=== PATIENT | female | born 1935 | race Caucasian/White ===

== ENCOUNTER → 2017-05-02 | Outpatient (CLI) | payer BC ==
[~2017-05-02] MED LIST: ASCAUNK PO; B-COTAB18 PO; CALCTAB13 PO; LEVO1TAB33 PO; METR0.754 EXT; METR500T PO; MINO1CAP25 PO; MULT-506 PO; MULTTAB58 PO; NSNN50; OMEP20CA59 PO; OMEP20CA9 PO; PRAM0.129 PO; PRAM0.256 PO; TRAM-10 PO; TRETINOIN 0.05% EXT; VITAMIN D3 PO; [UNRECOGNIZED DRUG - CODE] EXT; [UNRECOGNIZED DRUG - OTHER]
[2017-05-02 09:33] LABS: BASO % 0.8 %; BASO ABS # 0.04 K/uL (0-0.2); COMPLETE YES; EOS % 2.1 %; HEMATOCRIT 39.5 % (37-47); IG% 0.2 %; LYMPH % 19.6 %; LYMPH ABS # 1.01 K/uL (1.2-3.4); MEAN CELL VOLUME 85.9 fL (80-100); MEAN CORPUSCULAR HEMOGLOBIN 28.9 pg (25-34); MEAN CORPUSCULAR HGB CONC 33.7 g/dl (32-36); MEAN PLATELET VOLUME 9.4 fL (7.4-10.4); MONO % 11.8 %; NEUT % 65.5 %; PLATELET COUNT 271 K/uL (130-400); WHITE BLOOD COUNT 5.16 K/uL (4.8-10.8)
[2017-05-02 09:51] LABS: ALT/SGPT 26 U/L (12-78); AST/SGOT 21 U/L (15-37); BLOOD UREA NITROGEN 13 mg/dl (7-18); BUN/CREATININE RATIO 14.7 (10-20); CARBON DIOXIDE 25 mmol/L (21-32); CHLORIDE 99 mmol/L (98-107); CHOLESTEROL 210 mg/dl (0-200); CREATININE 0.86 mg/dl (0.60-1.20); GLUCOSE 96 mg/dl (70-99); POTASSIUM 4.2 mmol/L (3.5-5.1); SODIUM 134 mmol/L (136-145); TRIGLYCERIDES 53 mg/dl (0-150); VERY LOW DENSITY LIPOPROT CALC 11 mg/dl
[2017-05-02 09:54] LABS: CALCIUM 9.3 mg/dl (8.5-10.1)
[2017-05-02 10:01] LABS: ALB/GLOB RATIO 1.2 (0.9-2); ALKALINE PHOSPHATASE 67 U/L (45-117); CHOLESTEROL/HDL RATIO 2.7; HDL CHOLESTEROL 79 mg/dl; LDL CHOLESTEROL CALCULATED 120 mg/dl
== END | disposition home or self-care (01) ==
LOC: C.LAB1850 07:35
PROVIDERS: ATTEND Internal Medicine
DX: Z13.29 Encounter for screening for other suspected endocrine disorder (principal); M25.50 Pain in unspecified joint; E78.5 Hyperlipidemia, unspecified; D72.819 Decreased white blood cell count, unspecified; E55.9 Vitamin D deficiency, unspecified

== ENCOUNTER → 2017-06-12 | Outpatient (CLI) | payer BC ==
[~2017-06-12] MED LIST changes: -B-COTAB18 PO; -MULT-506 PO; -OMEP20CA9 PO; -PRAM0.256 PO; -TRAM-10 PO; -VITAMIN D3 PO
[2017-06-12 11:52] LABS: BLOOD UREA NITROGEN 11 mg/dl (7-18); BUN/CREATININE RATIO 14.1 (10-20); CALCIUM 8.9 mg/dl (8.5-10.1); CARBON DIOXIDE 29 mmol/L (21-32); CHLORIDE 98 mmol/L (98-107); CREATININE 0.78 mg/dl (0.60-1.20); GLUCOSE 92 mg/dl (70-99); POTASSIUM 4.7 mmol/L (3.5-5.1); SODIUM 132 mmol/L (136-145)
== END | disposition home or self-care (01) ==
LOC: C.LABSPEC 11:07
PROVIDERS: ATTEND Internal Medicine
DX: I87.2 Venous insufficiency (chronic) (peripheral) (principal)

== ENCOUNTER → 2017-08-08 | Outpatient (CLI) | payer BC ==
[2017-08-08 10:01] LABS: BLOOD UREA NITROGEN 11 mg/dl (7-18)
[2017-08-12 15:34] LABS: GAMMA GLOBULIN 0.9 G/DL (0.8-1.7); TOTAL PROTEIN 6.5 G/DL (6.2-8.3); VITAMIN B6** TC 926 159 ng/mL (2.1-21.7)
--- NOTE | 2017-08-16 09:45 | CODING QUERY MEDICAL NECESSITY ---
SUPPORTING DIAGNOSIS NEEDED Dr. Gonzalez, A supporting diagnosis is required for the test/procedure performed on this patient in order for us to be reimbursed by the patient's insurance. Please provide a supporting diagnosis for the following test/procedure listed below next to the test name along with your signature. *If there is no additional diagnosis for this patient that would support the following test/procedure please document that below next to the test/procedure. Test(s)/Procedure(s) that require a supporting diagnosis: * ([id number]) B12 VITAMIN LEVEL DIAGNOSIS: * ([id number]) VITAMIN B6 PYRIDOXAL PHOSPHATE DIAGNOSIS: DATE OF SERVICE: 08/08/17 Provider Signature: Date: Thank you Lukas Nevarez [facility] Information Management Once completed, please kindly fax back to [phone] For questions please call [phone]
== END | disposition home or self-care (01) ==
LOC: C.LAB1850 07:10
PROVIDERS: ATTEND Psychiatry & Neurology Neurology
DX: Z00.00 Encounter for general adult medical examination without abnormal findings (principal); R29.3 Abnormal posture; G62.9 Polyneuropathy, unspecified; G25.81 Restless legs syndrome; R26.9 Unspecified abnormalities of gait and mobility; R27.9 Unspecified lack of coordination; G60.9 Hereditary and idiopathic neuropathy, unspecified

== ENCOUNTER → 2017-08-14 | Outpatient (CLI) | payer BC ==
[~2017-08-14] MED LIST changes: +GADAVIST IV PRN
--- NOTE | 2017-08-14 17:33 | DIAGNOSTIC IMAGING REPORT ---
BRAIN COMBO FOR IAC CLINICAL HISTORY: POOR BALANCE; POSTURABLE INSTABILITY. COMPARISON STUDY: No previous studies for comparison. TECHNIQUE: Utilizing a 1.5 [place] magnet and dedicated coil, multiplanar, multi echo imaging of the brain was performed pre and postcontrast administration with thin cut imaging through the internal auditory canals. Injection of 5.6 cc of Gadavist IV was uneventful. FINDINGS: This exam is mildly compromised by motion artifact but is diagnostic. There are no areas of restricted diffusion. No acute intracranial hemorrhage, midline shift or mass effect is present. Mild ventricular dilatation is due to atrophy. Basilar cisterns are patent. There are no extra-axial collections. Moderate white matter T2 hyperintense foci suggest small vessel disease. No mass or abnormal enhancement is identified within the internal auditory canals. There is no mastoid effusion. Calvarial signal is maintained. Flow-voids for the major intracranial vessels are present. IMPRESSION: 1. No acute intracranial findings. 2. No abnormalities within the internal auditory canals. 3. No intracranial mass or pathologic enhancement. 4. Moderate atrophy and moderate small vessel disease. Electronically signed by: Ricardo Corley M.D. 08/14/2017 5:32 PM Dictated Date/Time: 08/14/2017 3:59 PM
== END | disposition home or self-care (01) ==
LOC: C.MRI 13:21
PROVIDERS: ATTEND Psychiatry & Neurology Neurology
DX: R26.89 Other abnormalities of gait and mobility (principal); R29.3 Abnormal posture

== ENCOUNTER → 2017-09-24 | Day surgery (SDC) | payer BC ==
[2017-09-20 10:33] VITALS: Ht 156.2 cm; Wt 55.0 kg
[~2017-09-24] VITALS: Ht 156.2 cm; Wt 55.0 kg
[~2017-09-24] MED LIST changes: -ASCAUNK PO; +ATROPINE SULFATE 0.1 MG/ML 5ML SYR IV PRN; +B-COTAB18 PO; +BUPIVACAINE 0.5 % 5 MG/1 ML PF 10ML VIAL ONE; -CALCTAB13 PO; +CEFAZOLIN 1000MG IV PUSH 5 ML IV SCH; +EpHEDrine SULFATE INJ 50 MG/ML AMP IV PRN; +FENTANYL CITRATE INJ 50 MCG/1 ML 2 ML VIAL IV PRN; +FENTANYL CITRATE INJ 50 MCG/1 ML 2 ML VIAL ONE; +FLUMAZENIL 0.1 MG/1 ML 10 ML VIAL IV PRN; -GADAVIST IV PRN; +HYDROmorphone INJ 2 MG/ML SYR/VIAL IV PRN; +LABETALOL HCL IV 5 MG/ML 20ML IV PRN; +LACTATED RINGER'S 1000ML 1,000 ML IV SCH; -LEVO1TAB33 PO; +LIDOCAINE HCL 1% 20 ML VIAL ONE; +LIDOCAINE HCL 2% 2 ML VIAL (20MG/ML) ONE; +MEPERIDINE HCL 25 MG/ML CARP IV PRN; -METR0.754 EXT; -METR500T PO; +MIDAZOLAM HCL 1 MG/ML 2ML VIAL ONE; -MINO1CAP25 PO; +MULT-506 PO; -MULTTAB58 PO; +NALOXONE HCL 0.4 MG/1 ML VIAL/CARP IV PRN; -NSNN50; -OMEP20CA59 PO; +OMEP20CA9 PO; +ONDANSETRON INJ 2 MG/ML 2 ML VIAL IV PRN; +OXYCODONE/ACETAMINOPHEN 5-325 TAB PO PRN; +PHENYLEPHRINE 100MCG/ML 5ML SYR IV PRN; +PRAM0.256 PO; +PROPOFOL IV EMULSION 10 MG/ML 20 ML VIAL IV ONE; +SODIUM CHLORIDE 0.9% 1000ML 1,000 ML IV SCH; +TRAM-10 PO; -TRETINOIN 0.05% EXT; +VITAMIN D3 PO; -[UNRECOGNIZED DRUG - CODE] EXT; -[UNRECOGNIZED DRUG - OTHER]
--- NOTE | 2017-09-24 06:52 | History & Physical Bridge - SC ---
H&P Re-Evaluation Bridge Note: I have examined the patient, reviewed the History & Physical and in the interval since the performance of the History & Physical I have noted the following changes of clinical significance: No changes noted
--- NOTE | 2017-09-24 07:13 | [facility] Post Operative Brief Note ---
Immediate Operative Summary Operative Date Sep 24, 2017. Pre-Operative Diagnosis Right Ring Trigger Finger Post-Operative Diagnosis Same Procedure(s) Performed Right Ring Trigger Finger Release Surgeon Dr. Cardona Art Objects Repairer Surgeon(s) Pravin Smith PA-C Estimated Blood Loss 0 mL Findings ABOVE Specimens None Anesthesia LOCAL IV SEDATION Complication(s) None Disposition
[2017-09-24 07:16] VITALS: TEMP 36.5
--- NOTE | 2017-09-24 07:17 | Discharge Instructions-SurgCtr ---
Discharge Instructions Date of Service Sep 24, 2017. Visit Reason for Visit: Right Ring Trigger Finger Discharge Discharge Diagnosis / Problem: SAME ABOVE Discharge Goals Goal(s): Decrease discomfort, Improve function Activity Recommendations Activity Limitations: as noted below Lifting Limitations: gradually increase as tolerated Exercise/Sports Limitations: gradually increase as tolerated Anesthesia . Post Anesthesia Instructions: If you have had General Anesthesia or IV Sedation: * Do not drive today. * Resume driving when surgeon permits. * Do not make important decisions or sign legal documents today. * Call surgeon for: 1. Temperature elevations greater than 101 degrees F. 2. Uncontrollable pain. 3. Excessive bleeding. 4. Persistent nausea and vomiting. 5. Medication intolerance (nausea, vomiting or rash). * For nausea and vomiting use only clear liquids such as: tea, soda, bouillon until nausea subsides, then gradually increase diet as tolerated. * If you have any concerns or questions, call your surgeon's office. If physician is unavailable and it is an emergency, call 911 or go to the nearest emergency room. . Instructions / Follow-Up Instructions / Follow-Up MEDICATIONS: * Resume previous medications unless instructed otherwise by your surgeon. * Always take pain medication on a full stomach or with food to avoid upset stomach. * Do not drink alcohol or drive while taking narcotics. * Ibuprofen or Tylenol may be taken if narcotic not needed. SPECIAL CARE INSTRUCTIONS: __ None _X_ Keep extremity elevated and iced x 48 hours; apply ice 20-30 minutes 8-10 times/day. May remove at night. __ Sling __24 hrs/day __ Remove at night __ Shoulder Immobilizer __ 24 hrs/day __ Remove at night _X_ Dressing __ Maintain until seen in office, may shower with plastic over site _X_ Remove dressings in 24-48 hours and then may shower _X_ Cover incisions with band-aids after showering __ Do not remove steri-strips Call physician if chills or temperature rises above 102 degrees or pain unrelieved by prescribed pain medications at . . Diet Recommendations Home Diet: no limitations Procedures Procedures Performed: Right Ring Trigger Finger Release Pending Studies Studies pending at discharge: no Medical Emergencies . Who to Call and When: Medical Emergencies: If at any time you feel your situation is an emergency, please call 911 immediately. . Non-Emergent Contact Non-Emergency issues call your: Primary Care Provider . . "Provider Documentation" section prepared by Dallas Smith. .
--- NOTE | 2017-09-24 07:27 | OPERATIVE REPORT ---
DATE OF OPERATION: 09/24/2017 PREOPERATIVE DIAGNOSIS: Right ring trigger finger. POSTOPERATIVE DIAGNOSIS: Right ring trigger finger. PROCEDURE: Release A1 gifty, right ring finger. SURGEON: Uriel Cardona MD. FEATURE WRITER: Dallas Smith PA-C. ANESTHESIOLOGIST: Dr. Sun. ANESTHESIA: Local with IV sedation. DRAINS: None. COMPLICATIONS: None. CONDITION: The patient tolerated the procedure well and returned to the recovery room in apparent satisfactory condition. INDICATIONS FOR SURGERY: Liset is an 81-year-old female who has had triggering of the right ring finger. She has failed conservative care including injections and would like to go ahead and proceed with surgery. Procedure, expected outcomes and side effects were all explained in detail. DESCRIPTION OF PROCEDURE: The patient was taken to the OR at which time she was placed supine on the operating table and given IV sedation by the anesthesia department. Right hand was prepped and draped in usual sterile fashion for surgery. We infiltrated the anticipated incision site with 1% Xylocaine. Once this had taken effect, we exsanguinated the hand and put a forearm tourniquet up to 250 mmHg. We made a transverse incision over the A1 gifty of the ring finger. With loupe magnification, we dissected down, identified the A1 gifty and using an 11 blade and tenotomy scissors, it was divided. The finger was taken through a range of motion, no longer triggering. The wound was copiously irrigated. Incision was closed then with interrupted 4-0 nylon sutures. Marcaine without an epinephrine was placed in the skin edges. Placed sterile dressing of Xeroform, 4 x 4's and Coban. Returned back to recovery room in apparent satisfactory condition. I attest to the content of the Intraoperative Record and any orders documented therein. Any exception s are noted below.
--- NOTE | 2017-09-24 07:35 | Anesthesia Progress Nt - [facility] ---
Anesthesia Post Op Note Date & Time Sep 24, 2017 at 07:35 Vital Signs Pain Intensity: 0 Vital Signs Past 12 Hours Date Time Temp Pulse Resp B/P (MAP) Pulse Ox O2 Delivery O2 Flow Rate FiO2 09/24/17 07:16 36.5 56 16 116/67 (83) 98 Room Air 09/24/17 06:26 36.4 66 16 149/82 (104) 100 Room Air Notes Mental Status: alert / awake / arousable, participated in evaluation Pt Amnestic to Procedure: Yes Nausea / Vomiting: adequately controlled Pain: adequately controlled Airway Patency, RR, SpO2: stable & adequate BP & HR: stable & adequate Hydration State: stable & adequate Anesthetic Complications: no major complications apparent
[2017-09-24 07:41] VITALS: BP 149/84; PULSE 55; O2SAT 96
== END | disposition home or self-care (01) ==
LOC: X.SURG 06:09
PROVIDERS: ATTEND Orthopaedic Surgery
DX: M65.341 Trigger finger, right ring finger (principal); F41.9 Anxiety disorder, unspecified; Z79.899 Other long term (current) drug therapy

== ENCOUNTER → 2017-10-10 | Outpatient (CLI) | payer BC ==
[~2017-10-10] MED LIST changes: -ATROPINE SULFATE 0.1 MG/ML 5ML SYR IV PRN; -BUPIVACAINE 0.5 % 5 MG/1 ML PF 10ML VIAL ONE; -CEFAZOLIN 1000MG IV PUSH 5 ML IV SCH; -EpHEDrine SULFATE INJ 50 MG/ML AMP IV PRN; -FENTANYL CITRATE INJ 50 MCG/1 ML 2 ML VIAL IV PRN; -FENTANYL CITRATE INJ 50 MCG/1 ML 2 ML VIAL ONE; -FLUMAZENIL 0.1 MG/1 ML 10 ML VIAL IV PRN; -HYDROmorphone INJ 2 MG/ML SYR/VIAL IV PRN; -LABETALOL HCL IV 5 MG/ML 20ML IV PRN; -LACTATED RINGER'S 1000ML 1,000 ML IV SCH; -LIDOCAINE HCL 1% 20 ML VIAL ONE; -LIDOCAINE HCL 2% 2 ML VIAL (20MG/ML) ONE; -MEPERIDINE HCL 25 MG/ML CARP IV PRN; -MIDAZOLAM HCL 1 MG/ML 2ML VIAL ONE; -NALOXONE HCL 0.4 MG/1 ML VIAL/CARP IV PRN; -ONDANSETRON INJ 2 MG/ML 2 ML VIAL IV PRN; -OXYCODONE/ACETAMINOPHEN 5-325 TAB PO PRN; -PHENYLEPHRINE 100MCG/ML 5ML SYR IV PRN; -PRAM0.129 PO; -PROPOFOL IV EMULSION 10 MG/ML 20 ML VIAL IV ONE; -SODIUM CHLORIDE 0.9% 1000ML 1,000 ML IV SCH
[2017-10-10 09:31] LABS: MEAN CELL VOLUME 86.2 fL (80-100); MEAN CORPUSCULAR HEMOGLOBIN 29.1 pg (25-34); MEAN CORPUSCULAR HGB CONC 33.8 g/dl (32-36); MEAN PLATELET VOLUME 10.1 fL (7.4-10.4); PLATELET COUNT 281 K/uL (130-400); RED BLOOD COUNT 4.64 M/uL (4.2-5.4); WHITE BLOOD COUNT 5.78 K/uL (4.8-10.8)
[2017-10-10 09:57] LABS: ALT/SGPT 21 U/L (12-78); AST/SGOT 19 U/L (15-37); BLOOD UREA NITROGEN 15 mg/dl (7-18); BUN/CREATININE RATIO 19.8 (10-20); CALCIUM 9.4 mg/dl (8.5-10.1); CARBON DIOXIDE 28 mmol/L (21-32); CHLORIDE 102 mmol/L (98-107); CHOLESTEROL 206 mg/dl (0-200); CHOLESTEROL/HDL RATIO 2.5; CREATININE 0.77 mg/dl (0.60-1.20); GLUCOSE 100 mg/dl (70-99); HDL CHOLESTEROL 84 mg/dl; LDL CHOLESTEROL CALCULATED 107 mg/dl; POTASSIUM 4.1 mmol/L (3.5-5.1); SODIUM 136 mmol/L (136-145); TRIGLYCERIDES 75 mg/dl (0-150); VERY LOW DENSITY LIPOPROT CALC 15 mg/dl
== END | disposition home or self-care (01) ==
LOC: C.LAB1850 07:19
PROVIDERS: ATTEND Internal Medicine
DX: E78.5 Hyperlipidemia, unspecified (principal); D72.819 Decreased white blood cell count, unspecified; I87.2 Venous insufficiency (chronic) (peripheral)

== ENCOUNTER → 2017-10-31 | Outpatient (CLI) | payer BC ==
[2017-11-04 05:31] LABS: CREATININE UR 25 MG/DL (20-320); GAMMA GLOBULIN 0.8 G/DL (0.8-1.7); TOTAL PROTEIN 6.3 G/DL (6.2-8.3)
== END | disposition home or self-care (01) ==
LOC: C.LAB1850 11:11
PROVIDERS: ATTEND Psychiatry & Neurology Neurology
DX: G62.9 Polyneuropathy, unspecified (principal)

== ENCOUNTER → 2018-04-14 | Outpatient (CLI) | payer BC ==
[~2018-04-14] MED LIST changes: -PRAM0.256 PO; +PRAM0.259 PO; -TRAM-10 PO
[2018-04-14 09:41] LABS: BASO % 0.6 %; BASO ABS # 0.03 K/uL (0-0.2); EOS % 2.8 %; EOS ABS # 0.13 K/uL (0-0.5); HEMATOCRIT 38.2 % (37-47); HEMOGLOBIN 13.2 g/dL (12.0-16.0); IG# 0.02 K/uL (0.00-0.02); LYMPH % 20.9 %; LYMPH ABS # 0.98 K/uL (1.2-3.4); MEAN CELL VOLUME 84.7 fL (80-100); MEAN CORPUSCULAR HEMOGLOBIN 29.3 pg (25-34); MEAN CORPUSCULAR HGB CONC 34.6 g/dl (32-36); MEAN PLATELET VOLUME 9.5 fL (7.4-10.4); MONO % 12.6 %; MONO ABS # 0.59 K/uL (0.11-0.59); NEUT % 62.7 %; NEUT ABS # 2.94 K/uL (1.4-6.5); PLATELET COUNT 251 K/uL (130-400); RED CELL DISTRIBUTION WIDTH CV 12.9 % (11.5-14.5); RED CELL DISTRIBUTION WIDTH SD 39.6 fL (36.4-46.3); WHITE BLOOD COUNT 4.69 K/uL (4.8-10.8)
[2018-04-14 10:17] LABS: ALT/SGPT 24 U/L (12-78); AST/SGOT 24 U/L (15-37); BLOOD UREA NITROGEN 10 mg/dl (7-18); CALCIUM 8.8 mg/dl (8.5-10.1); CARBON DIOXIDE 30 mmol/L (21-32); CHOLESTEROL 193 mg/dl (0-200); CREATININE 0.74 mg/dl (0.60-1.20); GLUCOSE 93 mg/dl (70-99); POTASSIUM 4.3 mmol/L (3.5-5.1); SODIUM 130 mmol/L (136-145)
[2018-04-14 10:22] LABS: LDL CHOLESTEROL CALCULATED 111 mg/dl
== END | disposition home or self-care (01) ==
LOC: C.LAB1850 07:38
PROVIDERS: ATTEND Internal Medicine
DX: D72.819 Decreased white blood cell count, unspecified (principal); E78.5 Hyperlipidemia, unspecified; M25.50 Pain in unspecified joint; E55.9 Vitamin D deficiency, unspecified

== ENCOUNTER → 2018-07-12 | Outpatient (CLI) | payer BC ==
[~2018-07-12] MED LIST changes: +ERGO2000 PO
[2018-07-12 10:41] LABS: BASO % 0.7 %; BASO ABS # 0.04 K/uL (0-0.2); EOS % 0.7 %; EOS ABS # 0.04 K/uL (0-0.5); HEMOGLOBIN 12.5 g/dL (12.0-16.0); IG# 0.01 K/uL (0.00-0.02); LYMPH % 21.7 %; LYMPH ABS # 1.23 K/uL (1.2-3.4); MEAN CELL VOLUME 85.3 fL (80-100); MEAN CORPUSCULAR HEMOGLOBIN 28.8 pg (25-34); MEAN CORPUSCULAR HGB CONC 33.8 g/dl (32-36); MEAN PLATELET VOLUME 9.6 fL (7.4-10.4); MONO % 10.1 %; MONO ABS # 0.57 K/uL (0.11-0.59); NEUT % 66.6 %; NEUT ABS # 3.78 K/uL (1.4-6.5); PLATELET COUNT 302 K/uL (130-400); RED CELL DISTRIBUTION WIDTH CV 13.7 % (11.5-14.5); RED CELL DISTRIBUTION WIDTH SD 42.5 fL (36.4-46.3); WHITE BLOOD COUNT 5.67 K/uL (4.8-10.8)
[2018-07-12 10:59] LABS: BLOOD UREA NITROGEN 7 mg/dl (7-18); CALCIUM 8.9 mg/dl (8.5-10.1); CARBON DIOXIDE 26 mmol/L (21-32); CREATININE 0.74 mg/dl (0.60-1.20); GLUCOSE 103 mg/dl (70-99); POTASSIUM 4.1 mmol/L (3.5-5.1); SODIUM 131 mmol/L (136-145)
== END | disposition home or self-care (01) ==
LOC: C.LAB1850 09:25
PROVIDERS: ATTEND Internal Medicine
DX: C85.90 Non-Hodgkin lymphoma, unspecified, unspecified site (principal); R53.83 Other fatigue

== ENCOUNTER → 2018-07-16 | Outpatient (CLI) | payer BC ==
--- NOTE | 2018-07-16 08:36 | DIAGNOSTIC IMAGING REPORT ---
PET/CT CLINICAL HISTORY: Lymphoma. COMPARISON STUDY: Chest CT dated 06/05/2018. Abdominal CT dated 07/12/2012. TECHNIQUE: One hour following the IV administration of 13.75 mCi of F-18 FDG, PET/CT examination was performed from the orbital meatal line through the bony pelvis. Noncontrast CT is performed for the purposes of anatomic correlation and attenuation correction. Note that this does not reflect a diagnostic CT examination. Images were reviewed on a separate [employer] independent workstation. Fused images were obtained. Standard uptake values reported are maximum values within the region of interest expressed in gm/mL. FINDINGS: PET FINDINGS: Head and neck: There is expected physiologic activity within the visualized brain parenchyma at the skull base and the salivary glands. No pathologically enlarged or FDG avid cervical lymph nodes are identified. Thorax: Evaluation of the thorax demonstrates expected physiologic myocardial activity. There are numerous small pulmonary nodules scattered throughout both lungs. A 10 mm lesion of the right apex is seen on image #58, and a 9 mm right middle lobe nodule is seen on image #77. These were not demonstrably FDG avid but are likely too small for PET characterization. There is a 5.9 x 4.5 cm soft tissue mass in the left axilla seen on image #56. This is markedly FDG avid with a maximum SUV of 20.8. There are no pathologically enlarged or FDG avid mediastinal, hilar, or right axillary lymph nodes. Abdomen and pelvis: There is expected activity within the liver, spleen, kidneys, renal collecting system, and bladder. Low-level bowel activity is likely within physical limits. The spleen measures up to 7.5 cm in length. There is a 3.0 x 1.5 cm portacaval node seen on image #113. This is markedly FDG avid with a maximum SUV of 5.6. No additional FDG avid lymph nodes are identified in the other pelvis. There are no pathologically enlarged or FDG avid inguinal nodes. Unenhanced CT images: The visualized brain parenchyma the skull base is normal in appearance. The bony orbits appear intact and orbital contents are normal in appearance noting bilateral ocular lens implants. The visualized paranasal sinuses and the mastoid air cells are clear. The salivary and thyroid glands are normal as imaged. The thoracic aorta is normal in caliber. The heart is top normal in size and without pericardial effusion. There is a tiny hiatal hernia. No airspace consolidation or pleural effusion is identified. Bibasilar scarring/atelectasis is noted. The unenhanced liver, gallbladder, spleen, adrenal glands, pancreas, and kidneys are grossly unremarkable. There is moderate prostatic calcification of the abdominal aorta which is normal in caliber. No bowel obstruction is identified. There is mild to moderate colonic diverticulosis without CT evidence of acute diverticulitis. Colonic fecal retention is observed. No intraperitoneal free air or abdominal ascites is seen. The bladder, uterus, and adnexa are normal as imaged. The skeletal structures are osteopenic. Degenerative change is noted throughout the spine. No lytic or blastic lesion is identified. IMPRESSION: 1. There is a large and markedly FDG avid left axillary mass lesion, consistent with the reported history of lymphoma. 2. There is enlarged and FDG avid portacaval lymph node. 3. No additional pathologically enlarged or FDG avid lymph nodes are identified on today's examination. 4. Spleen is normal in size. 5. There are irregular pulmonary nodules measuring up to 10 mm. These were not demonstrably FDG avid but are likely too small for PET characterization. These were better characterized on the 06/05/[address] and may be on an infectious/inflammatory basis. Continued attention at follow-up is recommended. 6. Colonic diverticulosis without CT evidence of acute diverticulitis. 7. Additional findings as above. Electronically signed by: Keon Greer M.D. 07/16/2018 8:35 AM Dictated Date/Time: 07/16/2018 8:23 AM
== END | disposition home or self-care (01) ==
LOC: C.PET 06:06
PROVIDERS: ATTEND Internal Medicine Hematology & Oncology
DX: C83.34 Diffuse large B-cell lymphoma, lymph nodes of axilla and upper limb (principal)

== ENCOUNTER → 2018-07-23 | Day surgery (SDC) | payer BC ==
[2018-07-22 15:43] VITALS: BMI 22.0
[~2018-07-23] VITALS: Ht 157.5 cm; Wt 54.5 kg
[~2018-07-23] MED LIST changes: +ATROPINE SULFATE 0.1 MG/ML 5ML SYR IV PRN; -B-COTAB18 PO; +BUPIVACAINE 0.5 % 5 MG/1 ML PF 10ML VIAL ONE; +CEFAZOLIN 2000MG IV PUSH 15 ML IV SCH; +EpHEDrine SULFATE INJ 50 MG/ML AMP IV PRN; +FENTANYL CITRATE INJ 50 MCG/1 ML 2 ML VIAL ONE; +HEPARIN SOD (PORCINE) 5000 UNIT/ML 1 ML VIAL ONE; +HYDROCODONE/ACETAMIN 5/325MG TAB PO PRN; +LACTATED RINGER'S 1000ML 1,000 ML IV SCH; +LIDOCAINE HCL 1% 20 ML VIAL ONE; +LIDOCAINE HCL 2% 2 ML VIAL (20MG/ML) ONE; +MIDAZOLAM HCL 1 MG/ML 2ML VIAL ONE; +MoRPHine SULFATE 2 MG/ML CARP IV PRN; +ONDANSETRON INJ 2 MG/ML 2 ML VIAL IV PRN; +PROPOFOL IV EMULSION 10 MG/ML 20 ML VIAL ONE; -VITAMIN D3 PO
[2018-07-23 05:50] VITALS: BP 133/80; PULSE 71; TEMP 36.9; O2SAT 100; Ht 157.5 cm; Wt 54.5 kg
--- NOTE | 2018-07-23 08:39 | Discharge Instructions ---
Discharge Instructions Date of Service Jul 23, 2018. 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 Post Anesthesia Instructions: If you have had General Anesthesia or IV Sedation: * Do not drive today. * Resume driving when surgeon permits. * Do not make important decisions or sign legal documents today. * Call surgeon for: 1. Temperature elevations greater than 101 degrees F. 2. Uncontrollable pain. 3. Excessive bleeding. 4. Persistent nausea and vomiting. 5. Medication intolerance (nausea, vomiting or rash). * For nausea and vomiting use only clear liquids such as: tea, soda, bouillon until nausea subsides, then gradually increase diet as tolerated. * If you have any concerns or questions, call your surgeon's office. If physician is unavailable and it is an emergency, call 911 or go to the nearest emergency room. . Instructions / Follow-Up Instructions / Follow-Up Dr. Mistry in 1-2 weeks as planned, call [phone] if you have any questions or need to schedule an appt You can take OTC Tylenol or ibuprofen for pain Diet Recommendations Recommended Home Diet: no limitations Procedures Procedures Performed: Insertion of Mediport with Fluoroscopy Pending Studies Studies pending at discharge: no Medical Emergencies . Who to Call and When: Medical Emergencies: If at any time you feel your situation is an emergency, please call 911 immediately. . Non-Emergent Contact Non-Emergency issues call your: Surgeon Call Non-Emergent contact if: you have a fever, temperature is above 101.5, your pain is not controlled, wound has increased redness, wound has increased pain . . "Provider Documentation" section prepared by Lukas Hernandez. .
--- NOTE | 2018-07-23 08:50 | [facility] Post Operative Brief Note ---
Immediate Operative Summary Operative Date Jul 23, 2018. 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
--- NOTE | 2018-07-23 08:58 | [facility] Operative Report ---
Operative Report Operative Date Jul 23, 2018. Pre-Operative Diagnosis Large B cell lymphoma Post-Operative Diagnosis Same Procedure(s) Performed Left subclavian vein port placement with fluoroscopy Surgeon Dr Mistry Byproducts Operator Surgeon(s) Nevaeh Zhang PA-C Estimated Blood Loss 10cc Findings Left internal jugular vein accessed using real-time ultrasound guidance. Unable to feed wire to desired location. Left subclavian vein accessed, port placed into SVC. Draws and flushes easily at conclusion the procedure. Specimens None per surgeon Drains None Anesthesia MAC/local Complication(s) None Disposition Recovery Room / PACU Indications 82-year-old female with recently diagnosed large B-cell lymphoma need for long- term IV access, plan for port placement. The risks of the procedure were discussed, all questions were answered, and the patient agreed to proceed with surgery as planned. Description of Procedure The patient was properly identified, consented, and taken to the operating room where she was placed in the supine position with both arms tucked and a shoulder roll placed vertically. Monitored anesthesia care was induced. SCDs and a safety belt were placed. Preoperative antibiotics were administered. The patient's chest and neck was prepped and draped in the standard sterile fashion. Surgical timeout was performed and all parties were in agreement that this was the correct patient and procedure to be performed and we continued as planned. The patient was placed in Trendelenburg position. Local anesthetic was injected along the skin incision. Using real-time ultrasound guidance the left internal jugular vein was accessed using the access needle. The wire was fed through the needle and examined using real-time fluoroscopy. I was unable to get the wire to pass to the cavoatrial junction. The wire appeared to be going cephalad into the right internal jugular vein. I then removed the needle and wire and attempted to access the jugular vein again which was successful. Again the wire was not able to be passed to the cavoatrial junction. I stuck the internal jugular vein slightly more cephalad and again was unable to get the wire to pass the cavoatrial junction. I did insert the dilator with peel- away sheath and attempt to guide the wire but was still unsuccessful. At this point I then accessed the subclavian vein on the left. The wire was placed and the needle was removed. Fluoroscopy confirmed placement into the left subclavian vein extending into the superior vena cava. A transverse skin incision was made in the left chest overlying the wire and a pocket was created for the port. The dilator and peel-away sheath were inserted over the wire. The catheter was then inserted through the peel-away sheath and fluoroscopy confirmed placement into the superior vena cava. The catheter was cut and attached to the port. The port was secured into place with 3-0 Prolene sutures. A final x-ray revealed good placement of the port. The wound was irrigated and hemostasis was confirmed. The skin was closed with interrupted 3- 0 Vicryl deep dermal sutures, followed by 4-0 Monocryl running subcuticular suture. Dermabond was placed over the wound. The port was accessed and bridgette blood easily and flushed easily. It was flushed with heparinized saline. The patient taken to the PACU where she recovered without apparent incident. All sponge, instrument and needle counts were correct at the conclusion of the procedure. The patient tolerated the procedure well. The physician's data entry assistant was present and scrubbed for the entirety of the case , and was essential in positioning the patient, prepping and draping, retraction and exposure, placement of the port, closure of the wounds, and placement of dressings. A chest xray was ordered and pending at the time of this dictation. I attest to the content of the Intraoperative Record and any orders documented therein. Any exceptions are noted below.
--- NOTE | 2018-07-23 09:04 | [facility] Operative Report ---
Operative Report Operative Date Jul 23, 2018. Pre-Operative Diagnosis Large B cell lymphoma Surgeon Dr Mistry Findings Real time US guidance was used to access the left internal jugular vein. Fluoroscopy was used and interpreted by the operative surgeon to assist in placement of the port. A total of 81 seconds of fluoroscopy time was utilized. Disposition Recovery Room / PACU I attest to the content of the Intraoperative Record and any orders documented therein. Any exceptions are noted below.
--- NOTE | 2018-07-23 09:19 | Anesthesiology Progress Note ---
Anesthesia Post Op Note Date & Time Jul 23, 2018 at 09:19 Vital Signs Pain Intensity: 0 Vital Signs Past 12 Hours Date Time Temp Pulse Resp B/P (MAP) Pulse Ox O2 Delivery O2 Flow Rate FiO2 07/23/18 09:10 56 12 148/81 98 Room Air 07/23/18 09:00 36.3 63 12 155/74 100 Oxymask 10 07/23/18 05:50 36.9 71 18 133/80 (97) 100 Room Air Notes Mental Status: alert / awake / arousable, participated in evaluation Pt Amnestic to Procedure: Yes Nausea / Vomiting: adequately controlled Pain: adequately controlled Airway Patency, RR, SpO2: stable & adequate BP & HR: stable & adequate Hydration State: stable & adequate Anesthetic Complications: no major complications apparent
--- NOTE | 2018-07-23 09:26 | DIAGNOSTIC IMAGING REPORT ---
CHEST ONE VIEW PORTABLE CLINICAL HISTORY: s/p port placement. COMPARISON STUDY: Chest CT June 05, 2018 and PET/CT July 16, 2018. FINDINGS: There is no pneumothorax following placement of a left subclavian [id number]. Catheter tip projects over mid SVC. There is no evidence for pulmonary edema or pneumonia. Cardiomediastinal silhouette is normal. Small amount of subcutaneous gas within the left chest wall and neck is expected following port placement. IMPRESSION: No pneumothorax following placement of left subclavian [id number]. Electronically signed by: Ricardo Corley M.D. 07/23/2018 9:25 AM Dictated Date/Time: 07/23/2018 9:24 AM
[2018-07-23 09:36] VITALS: BP 148/71; PULSE 56; TEMP 36.6; O2SAT 99
[2018-07-23 10:06] VITALS: BP 160/81; PULSE 60; TEMP 36.6; O2SAT 99
== END | disposition home or self-care (01) ==
LOC: C.ACU 05:29
PROVIDERS: ATTEND Surgery
DX: C85.14 Unspecified B-cell lymphoma, lymph nodes of axilla and upper limb (principal); F41.9 Anxiety disorder, unspecified; M25.50 Pain in unspecified joint; G25.0 Essential tremor; E78.5 Hyperlipidemia, unspecified; D47.2 Monoclonal gammopathy; M81.0 Age-related osteoporosis without current pathological fracture; K21.9 Gastro-esophageal reflux disease without esophagitis; G62.9 Polyneuropathy, unspecified; G25.81 Restless legs syndrome; E55.9 Vitamin D deficiency, unspecified; Z83.49 Family history of other endocrine, nutritional and metabolic diseases; Z80.1 Family history of malignant neoplasm of trachea, bronchus and lung; Z79.82 Long term (current) use of aspirin; Z80.3 Family history of malignant neoplasm of breast; Z87.891 Personal history of nicotine dependence; Z79.899 Other long term (current) drug therapy

== ENCOUNTER 2024-03-16 13:58 | Inpatient (IN) ==
[2024-03-16] MEDS: OPTIRAY 320 125ml IV ONE (14:01)
--- NOTE | 2024-03-16 14:02 | Emergency Department Note ---
Impression & Plan Left pontine CVA, Basilar artery stenosis, Weakness on right side of face ED Provider Note NAME: RAFFI LONG AGE: 88 SEX: F : 1935 ARRIVES VIA: Ambulance INFORMANT: Patient ED PROVIDER(S): Kirby Blackwell MD CHIEF COMPLAINT: Stroke symptoms. 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 The details of the patient last known well or unclear as staff reported rounding on the patient last at 730 but there was a staff member who potentially had been in and out of the room since then who thought she was "normal". However they had added that she has been feeling weak generally through the weekend and so a last known well is unclear. liability analyst was able to contact facility and obtained additional information where the patient did see orthopedics on Saturday and had cortisone injection in her left hand and right shoulder and then complained of pain in these areas and flushed face. Yesterday they reported that the patient did not want to move her legs at all. This morning she reported feeling tired and weak and had requested to see a doctor at 8 AM but the details of what she was feeling and when she began to feel this way is not clear. At 1 PM the patient told a staff member who delivers medications that she felt her speech was slurred and had worsening weakness. EMS had reported right-sided weakness but the patient feels her weakness is in her left side. The patient was taken immediately to CT via stroke alert protocol. Prior to my examination of the patient I did review the limited information with [facility] [facility] telestroke neurology Dr. Brumfield. She did login to the telestroke terminal and her examination was initiated. The patient is in NAD, AFVSS. She exhibits subtle right lower facial weakness at rest, symmetric with smile. Mild dysarthria. Normal strength without drift in BUE and BLE. Right shoulder ROM limited 2/2 history of arthritis. EKG without overt acute ischemia. CXR with question of interstitial prominence and otherwise no focal infiltrates. WBC, H/H and platelets within normal limits. Chemistry without metabolic acidosis. Electrolytes and LFTs without significant abnormality. High- sensitivity troponin 13.7, within normal limits. UA without evidence of infection. COVID-19 RNA, AMBAR test was negative. CT of the head and CTA of the head and neck were performed. Note is made of focal stenosis of approximately 80% of the proximal basilar artery. Otherwise no ICH or CVA identified. Patient was evaluated by [facility] stroke neurology. Appreciate consultation and recommendations. The patient had eventually clarified that she did have speech symptoms on Saturday and so given this she was considered to be outside of the TNK window. Also no target for endovascular therapy. Recommendations are to load with aspirin and Plavix and atorvastatin pending speech and swallow. Aspirin suppository ordered for now. Continue with IV fluid hydration. Recommends MRI of the brain with contrast for further assessment. She did review the patient's basilar artery stenosis with [facility] neurosurgery and they recommend dual antiplatelet therapy for 90 days and to follow in the outpatient setting with neurosurgery for reassessment. Case was discussed with Dr. Chase, [facility] hospitalist, who will evaluate the patient for admission. [facility] telestroke neurology recommendations relayed to admitting team. Of note, following admission, MRI brain completed per admitting team demonstrates acute to subacute or chronic infarct centered in the left diana. Further management per admitting team. Triage Nursing notes reviewed and agree them. Prior/external medical records reviewed Vital Signs: reviewed Differential diagnosis: Infection, dehydration, metabolic abnormality, hypo/hyperglycemia, electrolyte disturbance, anemia, hypoxia, cardiac sources, intracerebral event, toxicologic, neurologic, as well as other pathologies. ER treatment provided: See below. Diagnostics interpreted by me: ECG: Normal sinus rhythm, 70 bpm, no ectopy, nonspecific ST abnormality, no overt ST elevation or depression, QTc 444, QRS 86. Cardiac Monitoring: An order for continuous cardiac monitoring was placed and demonstrated Normal sinus rhythm, 70 bpm, no ectopy, Laboratory studies: See below Imaging studies: See below Consultation(s): [facility] [place] [facility] telestroke neurology Dr. Octaviano Chase, [facility] hospitalist. HPI: The patient is a pleasant 88-year-old woman Patient PMH of h/o lymphoma s/p chemotherapy, essential tremor, MGUS, right BRAO, known neuropathy thought to be 2/2 B6 toxicity/chemotherapy c/b gait impairment/balance issues, prediabetes and restless leg syndrome, is a pleasant sensory polyneuropathy, sensory ataxia, vitamin B6 induced neuropathy, vitamin D deficiency, osteoporosis, hypertension, hyperlipidemia, essential tremor who presents to the emergency department via EMS for strokelike symptoms which per EMS reported were slurred speech and right-sided weakness in her arm and leg. The details of the patient last known well or unclear as staff reported rounding on the patient last at 730 but there was a staff member who potentially had been in and out of the room since then who thought she was "normal". However they had added that she has been feeling weak generally through the weekend and so a last known well is unclear. liability analyst was able to contact facility and obtained additional information where the patient did see orthopedics on Saturday and had cortisone injection in her left hand and right shoulder and then complained of pain in these areas and flushed face. Yesterday they reported that the patient did not want to move her legs at all. This morning she reported feeling tired and weak and had requested to see a doctor at 8 AM but the details of what she was feeling and when she began to feel this way is not clear. At 1 PM the patient told a staff member who delivers medications that she felt her speech was slurred and had worsening weakness. EMS had reported right-sided weakness but the patient feels her weakness is in her left side. ROS: See above HPI for pertinent positives & negatives. A total of 10 systems reviewed and were otherwise negative. VITALS:See Below PHYSICAL EXAMINATION: GENERAL: Awake, alert, in no distress HENT: Normocephalic, atraumatic. Oropharynx with dry mucous membranes and otherwise unremarkable. EYES: Normal conjunctiva. Sclera non-icteric. NECK: Supple. No nuchal rigidity. FROM. No JVD. RESPIRATORY: Clear to auscultation. CARDIAC: Regular rate, normal rhythm. Extremities warm and well perfused. Pulses equal. ABDOMEN: Soft, non-distended. No tenderness to palpation. No rebound or guarding. No masses. MUSCULOSKELETAL: Chest examination reveals no tenderness. The back is symmetrical on inspection without obvious abnormality. There is no CVA tenderness to palpation. No joint edema. LOWER EXTREMITIES: Calves are equal size bilaterally and non-tender. No edema. No discoloration. NEURO: Subtle right lower facial weakness at rest, symmetric with smile. Mild dysarthria. Normal strength without drift in BUE and BLE. Right shoulder ROM limited 2/2 history of arthritis. SKIN: No rash or jaundice noted. ED COURSE: Critical Care: I have personally spent greater than 35 minutes of critical care time in the direct management of this patient. This includes bedside care, interpretation of diagnostic studies, and testing, discussion with consultants, patient, and family members, and other required patient management activities. This 35 minutes is in excess of all separately billable procedures. 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 Osteoporosis Mass of left axilla MGUS (monoclonal gammopathy of unknown significance) Lymphoma Leukopenia Hyperlipidemia Bursitis of elbow Benign essential tremor Axillary lymphadenopathy Anxiety disorder Restless leg syndrome GERD (gastroesophageal reflux disease) Cancer SKIN CANCER - BASAL CELL Non-Hodgkin lymphoma FINISHED CHEMO TREATMENT AND GETTING PORT REMOVED Hearing deficit WEARS HEARING AIDS Surgical History Hx of esophagogastroduodenoscopy Hx of colonoscopy Hx of appendectomy History of vascular access device INFUSAPORT FOR CHEMO Family History Sister Lung cancer Cancer Hyperlipidemia Breast cancer Other No family history of adverse response to anesthesia No family history of bleeding disorder Denies family history of Ovarian cancer Prostate cancer Colorectal cancer Social History Smoking Status: Former smoker Second Hand Exposure: No; Do You Dip or Chew Tobacco: No; Hx Alcohol Use: No Hx Substance Use: No Preferred Language: Uzbek Communication Ability: Effective Hydrotherapist Required: No Beliefs That Will Affect Care: None marital status: Current Living Situation: Personal Care Facility current occupational status: retired Other Information That Helps Us Care for You: No Feels Safe at Home: Yes Safety Concerns: Feels Safe At This Time Childhood Exposure to Second-Hand Smoke: No Dental Care, Regularly: Yes Physical Activity Frequency: Daily Physical Activity Frequency Comment: treadmill, bike Seatbelt Use: always Sunscreen Use: Yes Assistive Devices: Glasses, Hearing Aid - Bilateral and Walker Allergies Allergies Allergy/AdvReac Type Severity Reaction Status Date / Time No Known Allergies Allergy Verified 03/16/24 14:52 Home Meds Home Medications Medication Instructions Recorded Confirmed pramipexole 0.25 mg tablet 0.5 mg PO BID 03/27/21 03/16/24 albuterol sulfate 90 mcg/actuation 2 puff inhalation Q4H PRN 03/16/24 03/16/24 aerosol inhaler (Ventolin HFA) Shortness Of Breath Or Wheezing diphenhydramine HCl 25 mg tablet 50 mg PO Q8H PRN Allergic Reaction 03/16/24 03/16/24 (Benadryl Allergy) furosemide 40 mg tablet (Lasix) 20 mg PO .DAILY @ 1400 03/16/24 03/16/24 furosemide 40 mg tablet (Lasix) 40 mg PO QAM 03/16/24 03/16/24 meloxicam 15 mg tablet 15 mg PO QAM 03/16/24 03/16/24 ondansetron HCl 4 mg tablet 4 mg PO Q8H PRN Nausea 03/16/24 03/16/24 pantoprazole 20 mg tablet,delayed 20 mg PO QAM 03/16/24 03/16/24 release (Protonix) psyllium seed (sugar) oral powder 0 ea PO QAM 03/16/24 03/16/24 Results & Data (ED) Vital Signs Vital Signs - 24 hr 03/16/24 13:58 03/16/24 14:00 03/16/24 14:10 Pulse Rate 72 70 Pulse Rate [Finger] Pulse Rate from SpO2 Sensor 70 Pulse Rhythm [Finger] Pulse Strength [Finger] Respiratory Rate 24 18 Respiratory Effort / Characteristics Respiratory Depth Blood Pressure 140/70 Blood Pressure [Right Arm] Blood Pressure Mean 93 Blood Pressure Mean [Right Arm] Pulse Oximetry 98 97 Oxygen Delivery Method Room Air Room Air Sepsis Recent Fever Within 48 Hours No Sepsis New/Unexplained Change in Mental Status No Sepsis Action Taken by Nursing No Action Required 03/16/24 14:11 03/16/24 14:26 03/16/24 14:27 Pulse Rate 70 69 72 Pulse Rate [Finger] Pulse Rate from SpO2 Sensor 68 69 Pulse Rhythm [Finger] Pulse Strength [Finger] Respiratory Rate 20 18 Respiratory Effort / Characteristics Respiratory Depth Blood Pressure 140/70 145/75 H Blood Pressure [Right Arm] Blood Pressure Mean 93 98 Blood Pressure Mean [Right Arm] Pulse Oximetry 96 98 Oxygen Delivery Method Room Air Room Air Sepsis Recent Fever Within 48 Hours Sepsis New/Unexplained Change in Mental Status Sepsis Action Taken by Nursing 03/16/24 14:30 03/16/24 14:45 03/16/24 15:07 Pulse Rate 67 70 Pulse Rate [Finger] 77 Pulse Rate from SpO2 Sensor 67 69 Pulse Rhythm [Finger] Regular Pulse Strength [Finger] Normal Respiratory Rate 18 24 20 Respiratory Effort / Characteristics Non-Labored Spontaneous Respiratory Depth Normal Blood Pressure 141/85 H 147/83 H Blood Pressure [Right Arm] 166/108 H Blood Pressure Mean 103 104 Blood Pressure Mean [Right Arm] 127 Pulse Oximetry 97 97 100 Oxygen Delivery Method Room Air Room Air Room Air Sepsis Recent Fever Within 48 Hours Sepsis New/Unexplained Change in Mental Status Sepsis Action Taken by Nursing Laboratory Data 03/16/24 Unknown 03/16/24 Unknown Lab Results 03/16/24 Range/Units 14:12 POC Glucose 78 (70-99) mg/dl Administered Medications Pramipexole Dihydrochloride (Pramipexole Dihydrochlo 0.5 Mg Tab) 0.5 mg PO BID ADARSH Stop: 04/15/24 21:44 Last Admin: 03/16/24 22:14 Dose: 0.5 mg Documented By: AM Discontinued Medications Aspirin (Aspirin 300 Mg Supp) 300 mg MT ONE ONE Stop: 03/16/24 14:33 Last Admin: 03/16/24 15:06 Dose: 300 mg Documented By: DOROTHEA Clopidogrel Bisulfate (Clopidogrel Bisulfate 300 Mg Tab) 300 mg PO NOW STA Stop: 03/16/24 16:11 Last Admin: 03/16/24 17:09 Dose: 300 mg Documented By: MICHAEL Gadobutrol (Gadobutrol 65ml Vial) 6.2 ml IV ONCE ONE Stop: 03/16/24 18:19 Last Admin: 03/16/24 18:18 Dose: 6.2 ml Documented By: TREVIN Sodium Chloride (Nss) 1,000 mls @ 999 mls/hr IV .Q1H1M ONE Stop: 03/16/24 14:56 Last Infusion: 03/16/24 15:31 Dose: Infused Documented By: Admin: 03/16/24 14:23 Dose: 999 mls/hr Documented By: KAM Sodium Chloride (Nss) 1,000 mls @ 999 mls/hr IV .Q1H1M ONE Stop: 03/16/24 14:58 Last Infusion: 03/16/24 16:12 Dose: Infused Documented By: Admin: 03/16/24 15:07 Dose: 999 mls/hr Documented By: DOROTHEA Potassium Chloride (K Rafa / Wtr) 10 meq in 100 mls @ 100 mls/hr IV Q1H ADARSH Stop: 03/16/24 18:59 Last Admin: 03/16/24 21:37 Dose: 100 mls/hr Documented By: Infusion: 03/16/24 21:36 Dose: Infused Documented By: Admin: 03/16/24 20:20 Dose: 100 mls/hr Documented By: Infusion: 03/16/24 17:40 Dose: Infused Documented By: Admin: 03/16/24 16:18 Dose: 100 mls/hr Documented By: MICHAEL Pantoprazole Sodium 40 mg/ (Syringe) 10 mls @ 5 mls/min IV NOW ONE Stop: 03/16/24 16:31 Last Admin: 03/16/24 17:11 Dose: 5 mls/min Documented By: MICHAEL Ioversol (Optiray 320 125ml) 119 ml IV ONCE ONE Stop: 03/16/24 14:10 Last Admin: 03/16/24 14:01 Dose: 119 ml Documented By: ARTURO Imaging Data Radiologist's Impression: Chest X-Ray 03/16/24 13:56 XR chest 1V portable CLINICAL HISTORY: neuro deficit, acute stroke suspected COMPARISON STUDY: Chest CT February 26, 2024. FINDINGS: Lung volumes are diminished. Lungs are clear. There is no pneumothorax or pleural effusion. Cardiac size is normal. Mediastinal contours are normal. Interstitial prominence is noted. IMPRESSION: Interstitial prominence. This could be due to a hypoventilatory study or represent mild pulmonary edema. ACT 112: Negative or not required by law. Electronically signed by: Ricardo Corley M.D. 03/16/2024 2:[address] 03/16/24 13:56 CT OF THE HEAD WITHOUT CONTRAST CLINICAL HISTORY: aphasia, Right sided weakness COMPARISON STUDY: MRI of the brain December 23, 2019. CT DOSE: 1080.06 mGy.cm TECHNIQUE: Helical axial images of the head were obtained without IV contrast. Automated exposure control was utilized for the study. A dose lowering technique was utilized adhering to the principles of ALARA. FINDINGS: No acute intracranial hemorrhage, midline shift or mass effect is present. The ventricular system is stable. Mild ventricular dilatation is likely due to central atrophy. White matter hypodensity suggests small vessel disease. The basal cisterns are patent. No extra-axial collections are present. There are no findings to suggest acute dural sinus thrombosis or acute territorial infarct. No significant calvarial abnormalities are present. Visualized portions of the sinuses and mastoid air cells are clear. IMPRESSION: No acute intracranial findings. ACT 112: Negative or not required by law. Electronically signed by: Ricardo Corley M.D. 03/16/2024 2:13 PM Head CTA 03/16/24 13:56 CT ANGIOGRAM OF THE BRAIN CLINICAL HISTORY: Aphasia. Right-sided weakness. COMPARISON STUDY: Unenhanced CT of the brain performed concurrently on 03/16/2024. TECHNIQUE: Unenhanced axial CT scan of the brain is performed. Subsequently, following the IV administration of 119 cc of Optiray 320, CT angiogram of the brain was performed from the skull base to the vertex. Images are reviewed in the axial, sagittal, and coronal planes. 3-D MIPS images are created and assessed. IV contrast was administered without complication. A dose lowering technique was utilized adhering to the principles of ALARA. FINDINGS: Brain parenchyma: There is age-related involutional change noting moderate to advanced confluent subcortical and periventricular microangiopathic disease. There is no evidence of hemorrhage, mass effect, or acute territorial ischemia noting angiographic phase technique. There is no evidence of enhancing mass lesion on the angiogram phase images. No extra-axial fluid collection is seen. Quijano-white matter differentiation is preserved. Ventricles, sulci, and cisterns: Prominent secondary to positional change. CT angiogram of the brain: There is atherosclerotic calcification of the cavernous carotid arteries. The internal carotid arteries are widely patent, as are the anterior and middle cerebral arteries. The vertebrobasilar system and posterior cerebral arteries are widely patent. There is origin of the right posterior cerebral artery. The left vertebral artery is dominant. There is no aneurysm, high-grade stenosis, or focal vessel cutoff identified throughout the intracranial circulation. Dural sinuses: Clear as visualized. Orbits: The bony orbits are intact. The orbital contents are normal as visualized noting bilateral ocular lens implants. Sinuses and mastoids: The visualized paranasal sinuses are clear. The mastoid air cells are well pneumatized. Calvarium: Unremarkable. IMPRESSION: 1. There is no evidence of hemorrhage, mass effect, or acute territorial ischemia noting angiographic phase technique. 2. Unremarkable CT angiogram of the brain. ACT 112: Negative or not required by law. Electronically signed by: Keon Greer M.D. 03/16/2024 2:18 PM Neck CTA 03/16/24 13:56 NECK CTA HISTORY: aphasia, Right sided weakness TECHNIQUE: Multiaxial CT images of the neck were performed following the intravenous administration of contrast to evaluate the major cervical vessels. 3D/MIP images were also obtained. Sagittal and coronal reformats were reviewed. All measurements were calculated based on NASCET criteria. A dose lowering technique was utilized adhering to the principles of ALARA. COMPARISON STUDY: None. FINDINGS: The aortic arch and proximal great vessels are widely patent. There is no significant stenosis, occlusion, or dissection identified within the bilateral common carotid, internal carotid, or vertebral arteries. There is a focal area of high-grade stenosis within the proximal basilar artery just beyond the confluence of the vertebral arteries. This is best seen on image 287. This demonstrates approximately 80% focal stenosis. IMPRESSION: 1. No significant stenosis, occlusion, or dissection identified within the carotid or vertebral arteries. 2. Focal stenosis of approximately 80% at the proximal basilar artery. ACT 112: Negative or not required by law. Electronically signed by: Carlos Webster M.D. 03/16/2024 2:25 PM Discharge Plan Visit Data Chief Complaint: Stroke Alert Stated Complaint: STROKE ALER ED Provider: Kirby Blackwell Discharge Problem: Left pontine CVA, Basilar artery stenosis, Weakness on right side of face Patient Disposition: Admitted As Inpatient Discharge Instructions Interventions: ED Discharge Assessment Last Done: 03/16/24 16:35
--- NOTE | 2024-03-16 14:14 | CT Scan Report ---
CT OF THE HEAD WITHOUT CONTRAST CLINICAL HISTORY: aphasia, Right sided weakness COMPARISON STUDY: MRI of the brain December 23, 2019. CT DOSE: 1080.06 mGy.cm TECHNIQUE: Helical axial images of the head were obtained without IV contrast. Automated exposure con trol was utilized for the study. A dose lowering technique was utilized adhering to the principles o f ALARA. FINDINGS: No acute intracranial hemorrhage, midline shift or mass effect is present. The ventricular system is stable. Mild ventricular dilatation is likely due to central atrophy. White matter hypodens ity suggests small vessel disease. The basal cisterns are patent. No extra-axial collections are pres ent. There are no findings to suggest acute dural sinus thrombosis or acute territorial infarct. No s ignificant calvarial abnormalities are present. Visualized portions of the sinuses and mastoid air ce lls are clear. IMPRESSION: No acute intracranial findings. ACT 112: Negative or not required by law. Electronically signed by: Ricardo Corley M.D. 03/16/2024 2:13 PM
--- NOTE | 2024-03-16 14:19 | CT Scan Report ---
CT ANGIOGRAM OF THE BRAIN CLINICAL HISTORY: Aphasia. Right-sided weakness. COMPARISON STUDY: Unenhanced CT of the brain performed concurrently on 03/16/2024. TECHNIQUE: Unenhanced axial CT scan of the brain is performed. Subsequently, following the IV adminis tration of 119 cc of Optiray 320, CT angiogram of the brain was performed from the skull base to the vertex. Images are reviewed in the axial, sagittal, and coronal planes. 3-D MIPS images are created a nd assessed. IV contrast was administered without complication. A dose lowering technique was utiliz ed adhering to the principles of ALARA. FINDINGS: Brain parenchyma: There is age-related involutional change noting moderate to advanced confluent subc ortical and periventricular microangiopathic disease. There is no evidence of hemorrhage, mass effect , or acute territorial ischemia noting angiographic phase technique. There is no evidence of enhancin g mass lesion on the angiogram phase images. No extra-axial fluid collection is seen. Quijano-white fabian er differentiation is preserved. Ventricles, sulci, and cisterns: Prominent secondary to positional change. CT angiogram of the brain: There is atherosclerotic calcification of the cavernous carotid arteries. The internal carotid arteries are widely patent, as are the anterior and middle cerebral arteries. Th e vertebrobasilar system and posterior cerebral arteries are widely patent. There is origin of the right posterior cerebral artery. The left vertebral artery is dominant. There is no aneurysm, hig h-grade stenosis, or focal vessel cutoff identified throughout the intracranial circulation. Dural sinuses: Clear as visualized. Orbits: The bony orbits are intact. The orbital contents are normal as visualized noting bilateral oc ular lens implants. Sinuses and mastoids: The visualized paranasal sinuses are clear. The mastoid air cells are well pneu matized. Calvarium: Unremarkable. IMPRESSION: 1. There is no evidence of hemorrhage, mass effect, or acute territorial ischemia noting angiographic phase technique. 2. Unremarkable CT angiogram of the brain. ACT 112: Negative or not required by law. Electronically signed by: Keon Greer M.D. 03/16/2024 2:18 PM
[2024-03-16] MEDS: SODIUM CHLORIDE 0.9% 1,000 ML IV ONE ×2 (14:23→15:07)
--- NOTE | 2024-03-16 14:26 | CT Scan Report ---
NECK CTA HISTORY: aphasia, Right sided weakness TECHNIQUE: Multiaxial CT images of the neck were performed following the intravenous administration o f contrast to evaluate the major cervical vessels. 3D/MIP images were also obtained. Sagittal and cor onal reformats were reviewed. All measurements were calculated based on NASCET criteria. A dose low ering technique was utilized adhering to the principles of ALARA. COMPARISON STUDY: None. FINDINGS: The aortic arch and proximal great vessels are widely patent. There is no significant sten osis, occlusion, or dissection identified within the bilateral common carotid, internal carotid, or v ertebral arteries. There is a focal area of high-grade stenosis within the proximal basilar artery ju st beyond the confluence of the vertebral arteries. This is best seen on image 287. This demonstrates approximately 80% focal stenosis. IMPRESSION: 1. No significant stenosis, occlusion, or dissection identified within the carotid or vertebral arter ies. 2. Focal stenosis of approximately 80% at the proximal basilar artery. ACT 112: Negative or not required by law. Electronically signed by: Carlos Webster M.D. 03/16/2024 2:25 PM
[2024-03-16 14:37] LABS: Basophils # (auto) 0.02 K/uL (0.00-0.20); Basophils % (auto) 0.3 %; Eosinophils # (auto) 0.03 K/uL (0.00-0.50); Eosinophils % (auto) 0.4 %; Hematocrit (blood only) 38.8 % (37.0-47.0); Hemoglobin 13.3 g/dl (12.0-16.0); Immature Granulocytes # (auto) 0.03 K/uL (0.01-0.20); Immature Granulocytes % (auto) 0.4 %; Lymphocytes % (auto) 16.3 %; Mean Corpuscular Hemoglobin 28.8 pg (25.0-34.0); Mean Corpuscular Hgb Conc 34.3 g/dL (32.0-36.0); Mean Platelet Volume 9.7 fL (9.4-12.4); Monocytes # (auto) 0.66 K/uL (0.11-0.59); Monocytes % (auto) 8.3 %; Neutrophils # (auto) 5.94 K/uL (1.40-6.50); Neutrophils % (auto) 74.3 %; Platelet Count 307 K/uL (130-400); RDW Coefficient of Variation 12.9 % (11.5-14.5); RDW Standard Deviation 39.4 fL (36.4-46.3); Red Blood Count 4.62 M/uL (4.20-5.40); White Blood Count 7.98 K/ul (4.8-10.8)
[2024-03-16 14:53] LABS: Albumin Globulin Ratio 1.4 (0.9-2); Albumin Level 4.4 gm/dl (3.4-5.0); BUN Creatinine Ratio 25.3 (10-20); Bilirubin,Total 0.7 mg/dl (0.2-1.0); Calcium 9.5 mg/dl (8.6-10.3); Creatinine Clr Calc Pharmacy 37.9 ml/min; Est GFR (African American) 65.7 ml/min; Est GFR (Non-African American) 56.7 ml/min; Globulin 3.1 gm/dl (2.5-4.0); Magnesium 2.4 mg/dl (1.7-2.4); Potassium 3.4 mmol/L (3.5-5.1); Total Protein 7.5 gm/dl (6.0-8.3)
--- NOTE | 2024-03-16 14:55 | XRay Report ---
XR chest 1V portable CLINICAL HISTORY: neuro deficit, acute stroke suspected COMPARISON STUDY: Chest CT February 26, 2024. FINDINGS: Lung volumes are diminished. Lungs are clear. There is no pneumothorax or pleural effusion. Cardiac size is normal. Mediastinal contours are normal. Interstitial prominence is noted. IMPRESSION: Interstitial prominence. This could be due to a hypoventilatory study or represent mild p ulmonary edema. ACT 112: Negative or not required by law. Electronically signed by: Ricardo Corley M.D. 03/16/2024 2:53 PM
[2024-03-16 14:59] LABS: Troponin I High Sensitivity 13.7 pg/ml (0-14)
[2024-03-16 15:03] LABS: INR 1.1 (0.9-1.1); Partial Thromboplastin Ratio 0.9; Partial Thromboplastin Time 25 Seconds (21-31); Prothrombin Time 12.4 Seconds (9.0-12.0)
[2024-03-16] MEDS: ASPIRIN 300 MG SUPP PR ONE (15:06)
--- NOTE | 2024-03-16 15:24 | History & Physical Report ---
Date of Service March 16, 2024 Assessment & Plan (1) Stroke-like symptoms: Plan: -Admit to med/tele -Currently stable but with ongoing slurred speech, right facial droop and right UE weakness compared to left on physical exam -Presented from the [facility] as a stroke alert -While her symptoms acutely progressed at approximately 1300 this afternoon, the patient reports initial symptoms started on 03/14 -Patient CT of the head/brain and CTA of the head/neck were significant for Focal stenosis of approximately 80% at the proximal basilar artery. -The patient was evaluated by [facility] who did not recommend TNK administration as symptom began approximately 48 hours prior to arrival >Recommended loading patient with Full dose aspirin and 300 mg Plavix >Continue dual antiplatelet therapy moving forward >Start 80 mg Atorvastatin >Regarding the stenosis of the proximal basilar artery, they recommend dual antiplatelet therapy for at least 90 days, patient can follow up with Neurosurgery outpatient >Recommends obtaining MRI of the brain w/wo con with her hx of lymphoma >PRN labetalol for systolic BP > 200 mmhg -Patient was given 300 RI Aspirin in the ED -Will have her nurse perform a bedside swallow eval now, if she passes will start loading dose of Plavix and PO Atorvastatin -MRI brain w/wo con has been ordered -Will continue with aspirin and plavix with Bl SCD's for DVT PPX at this time -Will allow permissive HTN over the next 24 hours -Q4H neuro checks -Will obtain TTE, PT/OR, speech therapy consults -Will order diet if she passes dysphagia screen -AM CBC, CMP, mag, A1c, fasting lipid panel (2) Hypertension: Plan: -Currently hypertensive at 166/108 -Hold lasix for now as she is not volume overloaded and will allow permissive HTN over the next 24 hours if MRI is significant for new CVA (3) Hypokalemia: Plan: -Noted to be 3.4 today, mag is 2.4 -Likely due to daily lasix use -Not acute ECG changes -Will start with 3 bags of 10 meq IV KCL now -If she passes dysphagia screen will order PO KCL as well -If ongoing NPO status will order additional IV KCL -Monitor AM electrolytes (4) Basilar artery stenosis: Plan: [facility] >Continue dual antiplatelet therapy for at least 90 days >Patient can follow up with Neurosurgery after 90 days of DAPT (5) Paroxysmal SVT (supraventricular tachycardia): Plan: -Currently in NSR -Continue to monitor on tele (6) Lymphoma: Plan: -Has been in surveillance -Follow MRI brain (7) Hyperlipidemia: Plan: -Starting atorvastatin today -Follow fasting lipid panel Plan The patient was discussed with Dr. 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 ED staff reports that the patient developed acute onset of slurred speech, right facial droop, and right sided weakness at approximately 1300 this afternoon. On arrival to the ED she was noted to be hypertensive at 145/75 but was otherwise stable. Labs were significant for a potassium of 3.4. CT of the head/brain wo con and CTA head were read as negative for acute findings. CTA of the neck was read as "1. No significant stenosis, occlusion, or dissection identified within the carotid or vertebral arteries. 2. Focal stenosis of approximately 80% at the proximal basilar artery.". The ED staff spoke with [facility] who did not recommend TNK administration and recommended admission for ongoing workup of possible CVA. Prior to admission the patient was given 300 mg rectal aspirin and 2L NSS. At the time of the exam the patient was lying in bed in no acute distress with her son bedside, history was obtained from both. The patient received Kenalog injections in her left wrist and right shoulder on 03/12/24 with Orthopedics. The patient states that over the week she did not feel "right". States she had brain fog, felt as though she had weakness in the BL LE's, and LUE weakness. When asked, the patient clearly states that symptoms initially began over the weekend. However, they significantly progressed this afternoon around 1300. She currently denies headache, changes in vision, hearing, taste, smell, difficulty swallowing/choking, new paresthesias, chest pain, cough, SOB, abd pain, nausea, vomiting, diarrhea, dysuria, hematuria, melena, LE swelling, and recent falls/trauma. She feels as though she is still slurring her words, her son agrees that this and the right sided facial weakness are new for her. She no longer feels that she is having weakness in the BL LE's and is unsure if she is having weakness in her upper extremities at this time. We discussed code status, she is a full code and her son is her POA. Please refer to Dr. Chase's attestation for any changes to the treatment plan Allergies Allergy/AdvReac Type Severity Reaction Status Date / Time No Known Allergies Allergy Verified 03/16/24 14:52 Home Medications Medication Instructions Recorded Confirmed Type pramipexole 0.25 mg tablet 0.5 mg PO BID 03/27/21 03/16/24 History albuterol sulfate 90 mcg/actuation 2 puff inhalation Q4H PRN 03/16/24 03/16/24 History aerosol inhaler (Ventolin HFA) Shortness Of Breath Or Wheezing diphenhydramine HCl 25 mg tablet 50 mg PO Q8H PRN Allergic Reaction 03/16/24 03/16/24 History (Benadryl Allergy) furosemide 40 mg tablet (Lasix) 20 mg PO .DAILY @ 1400 03/16/24 03/16/24 History furosemide 40 mg tablet (Lasix) 40 mg PO QAM 03/16/24 03/16/24 History meloxicam 15 mg tablet 15 mg PO QAM 03/16/24 03/16/24 History ondansetron HCl 4 mg tablet 4 mg PO Q8H PRN Nausea 03/16/24 03/16/24 History pantoprazole 20 mg tablet,delayed 20 mg PO QAM 03/16/24 03/16/24 History release (Protonix) psyllium seed (sugar) oral powder 0 ea PO QAM 03/16/24 03/16/24 History Past Med/Surg History Medical History Anxiety disorder Axillary lymphadenopathy Benign essential tremor Blepharitis Bursitis of elbow Cancer Encounter for cosmetic surgery GERD (gastroesophageal reflux disease) Has 3 children Hearing deficit Hyperlipidemia Impaired gait Leukopenia Lymphoma Mass of left axilla MGUS (monoclonal gammopathy of unknown significance) Non-Hodgkin lymphoma Osteoporosis 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 Peripheral neuropathy Restless leg syndrome Sensorineural hearing loss (SNHL) of both ears Sensory ataxia Sensory polyneuropathy Venous insufficiency Vitamin B6 induced neuropathy Vitamin D deficiency Surgical History History of vascular access device Hx of appendectomy Hx of colonoscopy Hx of esophagogastroduodenoscopy Family History Sister Lung cancer Cancer Hyperlipidemia Breast cancer Other No family history of adverse response to anesthesia No family history of bleeding disorder Denies family history of Ovarian cancer Prostate cancer Colorectal cancer Social History Smoking Status: Never smoker Second Hand Exposure: No; Do You Dip or Chew Tobacco: No; Hx Alcohol Use: No Hx Substance Use: No Preferred Language: Urdu Communication Ability: Effective Rectifier Operator Required: No Beliefs That Will Affect Care: None marital status: Current Living Situation: Spouse current occupational status: retired Feels Safe at Home: Yes Childhood Exposure to Second-Hand Smoke: No Dental Care, Regularly: Yes Physical Activity Frequency: Daily Physical Activity Frequency Comment: treadmill, bike Seatbelt Use: always Sunscreen Use: Yes Assistive Devices: Hearing Aid - Bilateral Physical Exam Physical Exam: Physical Exam: General: In no acute distress, stated age, non-toxic appearing HEENT: atraumatic, no scleral icterus, pupils around round, symmetrical, and reactive to light, weakness of the right nasolabial fold, moist mucus membranes, trachea midline, no thyromegaly Chest/Pulm: No respiratory distress, symmetrical chest expansion, clear breath sounds throughout Cardiac: RRR, no murmurs noted Abdomen: Negative for ascites and bruising, normoactive bowel sounds, soft, non-tender to palpation throughout Musculoskeletal: Patient with decreased ROM of the RUE at baseline due to chronic right shoulder OA, no acute trauma noted Extremities: Radial, dorsalis pedis, and posterior tibial pulses are intact and symmetrical, no edema noted in the BL LE's Skin: Warm, dry, no rashes , lesions, or scars noted Neuro: Alert and oriented to person, place, month, year, and place of residence, patient slurring words and noted to have right facial droop, CN II- XII tested, tongue with slight deviation to the right, but otherwise without focal findings, unable to perform right UE cerebellar or pronator drift due to right shoulder pain, no tremors noted Psych: No acute distress, calm and cooperative during the exam Results & Data Results & Data Vital Signs (Past 12 Hours) Vital Signs Pulse Pulse Resp BP BP Pulse Ox O2 Del Method 03/16/24 15:07 77 20 166/108 H 100 Room Air 03/16/24 14:45 70 24 147/83 H 97 Room Air 03/16/24 14:30 67 18 141/85 H 97 Room Air 03/16/24 14:27 72 03/16/24 14:26 69 18 145/75 H 98 Room Air 03/16/24 14:11 70 20 140/70 96 Room Air 03/16/24 14:10 70 18 97 03/16/24 14:00 Room Air 03/16/24 13:58 72 24 140/70 98 Room Air Laboratory Results Abnormal lab results 03/16/24 Range/Units Unknown [place] # (Auto) 0.66 H (0.11-0.59) K/uL PT 12.4 H (9.0-12.0) Seconds Potassium 3.4 L (3.5-5.1) mmol/L BUN/Creatinine Ratio 25.3 H (10-20) Diagnostic Findings Chest X-Ray 03/16/24 13:56 XR chest 1V portable CLINICAL HISTORY: neuro deficit, acute stroke suspected COMPARISON STUDY: Chest CT February 26, 2024. FINDINGS: Lung volumes are diminished. Lungs are clear. There is no pneumothorax or pleural effusion. Cardiac size is normal. Mediastinal contours are normal. Interstitial prominence is noted. IMPRESSION: Interstitial prominence. This could be due to a hypoventilatory study or represent mild pulmonary edema. ACT 112: Negative or not required by law. Electronically signed by: Ricardo Corley M.D. 03/16/2024 2:[address] 03/16/24 13:56 CT OF THE HEAD WITHOUT CONTRAST CLINICAL HISTORY: aphasia, Right sided weakness COMPARISON STUDY: MRI of the brain December 23, 2019. CT DOSE: 1080.06 mGy.cm TECHNIQUE: Helical axial images of the head were obtained without IV contrast. Automated exposure control was utilized for the study. A dose lowering technique was utilized adhering to the principles of ALARA. FINDINGS: No acute intracranial hemorrhage, midline shift or mass effect is present. The ventricular system is stable. Mild ventricular dilatation is likely due to central atrophy. White matter hypodensity suggests small vessel disease. The basal cisterns are patent. No extra-axial collections are present. There are no findings to suggest acute dural sinus thrombosis or acute territorial infarct. No significant calvarial abnormalities are present. Visualized portions of the sinuses and mastoid air cells are clear. IMPRESSION: No acute intracranial findings. ACT 112: Negative or not required by law. Electronically signed by: Ricardo Corley M.D. 03/16/2024 2:13 PM Head CTA 03/16/24 13:56 CT ANGIOGRAM OF THE BRAIN CLINICAL HISTORY: Aphasia. Right-sided weakness. COMPARISON STUDY: Unenhanced CT of the brain performed concurrently on 03/16/2024. TECHNIQUE: Unenhanced axial CT scan of the brain is performed. Subsequently, following the IV administration of 119 cc of Optiray 320, CT angiogram of the brain was performed from the skull base to the vertex. Images are reviewed in the axial, sagittal, and coronal planes. 3-D MIPS images are created and assessed. IV contrast was administered without complication. A dose lowering technique was utilized adhering to the principles of ALARA. FINDINGS: Brain parenchyma: There is age-related involutional change noting moderate to advanced confluent subcortical and periventricular microangiopathic disease. There is no evidence of hemorrhage, mass effect, or acute territorial ischemia noting angiographic phase technique. There is no evidence of enhancing mass lesion on the angiogram phase images. No extra-axial fluid collection is seen. Quijano-white matter differentiation is preserved. Ventricles, sulci, and cisterns: Prominent secondary to positional change. CT angiogram of the brain: There is atherosclerotic calcification of the cavernous carotid arteries. The internal carotid arteries are widely patent, as are the anterior and middle cerebral arteries. The vertebrobasilar system and posterior cerebral arteries are widely patent. There is origin of the right posterior cerebral artery. The left vertebral artery is dominant. There is no aneurysm, high-grade stenosis, or focal vessel cutoff identified throughout the intracranial circulation. Dural sinuses: Clear as visualized. Orbits: The bony orbits are intact. The orbital contents are normal as visualized noting bilateral ocular lens implants. Sinuses and mastoids: The visualized paranasal sinuses are clear. The mastoid air cells are well pneumatized. Calvarium: Unremarkable. IMPRESSION: 1. There is no evidence of hemorrhage, mass effect, or acute territorial ischemia noting angiographic phase technique. 2. Unremarkable CT angiogram of the brain. ACT 112: Negative or not required by law. Electronically signed by: Keon Greer M.D. 03/16/2024 2:18 PM Neck CTA 03/16/24 13:56 NECK CTA HISTORY: aphasia, Right sided weakness TECHNIQUE: Multiaxial CT images of the neck were performed following the intravenous administration of contrast to evaluate the major cervical vessels. 3D/MIP images were also obtained. Sagittal and coronal reformats were reviewed. All measurements were calculated based on NASCET criteria. A dose lowering technique was utilized adhering to the principles of ALARA. COMPARISON STUDY: None. FINDINGS: The aortic arch and proximal great vessels are widely patent. There is no significant stenosis, occlusion, or dissection identified within the bilateral common carotid, internal carotid, or vertebral arteries. There is a focal area of high-grade stenosis within the proximal basilar artery just beyond the confluence of the vertebral arteries. This is best seen on image 287. This demonstrates approximately 80% focal stenosis. IMPRESSION: 1. No significant stenosis, occlusion, or dissection identified within the carotid or vertebral arteries. 2. Focal stenosis of approximately 80% at the proximal basilar artery. ACT 112: Negative or not required by law. Electronically signed by: Carlos Webster M.D. 03/16/2024 2:25 PM ECG Additional Comments: Normal sinus rhythm Nonspecific ST abnormality Abnormal ECG When compared with ECG of 22-JUL-2018 14:57, No significant change was found Code Status & VTE Plan Code Status Full code VTE Prophylaxis Plan VTE Prophylaxis will be ordered: Yes Supervising Physician Co-Signing Physician Notes Patient seen and examined, chart reviewed, case discussed with Blake Jordan PA-C and I agree with the assessment and plan as above except as otherwise noted Labs and images reviewed Patient presents with dysarthria, right facial droop and right arm weakness evaluation for stroke. Her symptoms began over the weekend the due to the onset of symptoms was not a TNKase candidate. Does have acute right-sided weakness although right shoulder exam somewhat limited by shoulder pain/arthritis. Remains with some dysarthria which she reports has been relatively unchanged since Saturday and some facial droop which corrects on smile. Right director database and elbow flexion is intact but qualitatively weaker compared to left. Sensation is intact. CTA shows a focal stenosis of 80% artery. CT of the head unremarkable. MRI is pending. Antiplatelet treatment as above, no need for permissive hypertension given onset of symptoms more than 24 hours. Telestroke recommendations reviewed, loaded with aspirin/Plavix and will continue atorvastatin, aspirin, Plavix daily. Patient does have the 80% stenosis and should have vascular follow-up after 30 days of dual antiplatelet therapy per neurostroke.. Agree with assessment management above. Echo with bubble study pending PG Care Time/CCT Total # of Minutes Spent Total Time Spent with Patient: Total time spent is greater than 50% in coordination of care (as documented) at patient's floor/unit and/or counseling patient: Coding [place] [address] INT INP/OBS CARE 3/75MIN Patient Type Established History Comprehensive Exam Comprehensive Medical Decision Making High Complexity Diagnoses Stroke-like symptoms R29.90 Hypertension I10 Hypokalemia E87.6 Basilar artery stenosis I65.1 Paroxysmal SVT (supraventricular tachycardia) I47.1 Lymphoma C85.90 Hyperlipidemia E78.5
[2024-03-16] MEDS ORDERED: PHARMACIST DISCHARGE MED REC CONSULT PRN (15:30)
[2024-03-16] MEDS ORDERED: LABETALOL HCL IV 5 MG/ML 20ML IV PRN (16:16)
[2024-03-16] MEDS: POTASSIUM CHLORIDE / WTR 10 MEQ/100 ML PLCT IV SCH (16:18)
[2024-03-16 16:36] LABS: Appearance Urine Clear (Clear); Bilirubin Urine Negative (Negative); Blood Urine Negative (Negative); Color Urine Yellow; Glucose Urine UA Negative (Negative); Ketones Urine Negative (Negative); Leukocyte Esterase Urine Negative (Negative); Nitrite Urine Negative (Negative); Protein Urine Negative (Negative); Specific Gravity Urine 1.018 (1.000-1.030); Urobilinogen Urine Negative (Negative); pH Urine 7.5 (4.5-7.5)
--- NOTE | 2024-03-16 16:49 | Electrocardiogram Report ---
Test Reason : Blood Pressure : / mmHG Vent. Rate : 070 BPM Atrial Rate : 070 BPM P-R Int : 174 ms QRS Dur : 086 ms QT Int : 412 ms P-R-T Axes : 087 003 051 degrees QTc Int : 444 ms Normal sinus rhythm Nonspecific ST abnormality Abnormal ECG When compared with ECG of 22-JUL-2018 14:57, No significant change was found Confirmed by Owen Gandhi ([id number]) on 03/16/2024 4:49:28 PM Referred By: [facility] Confirmed By:Dong Gandhi
[2024-03-16] MEDS: CLOPIDOGREL BISULFATE 300 MG TAB PO STA (17:09)
[2024-03-16] MEDS: PANTOprazole 40 MG in SYRINGE 0 ML IV ONE (17:11)
[2024-03-16] MEDS: GADOBUTROL 65ML VIAL IV ONE (18:18)
--- NOTE | 2024-03-16 19:09 | Magnetic Resonance Report ---
MRI OF THE BRAIN COMBO CLINICAL HISTORY: Strokelike symptoms. COMPARISON STUDY: CT of the brain dated 03/16/2024. MRI of the brain dated 12/23/2019. TECHNIQUE: MRI of the brain was performed utilizing various T1 and T2-weighted sequences in the axial , sagittal, and coronal planes. Contrast-enhanced sequences were acquired following the administratio n of 6.2 cc of Gadavist. The examination is significantly degraded by motion artifact. FINDINGS: Brain parenchyma: There is a 1.5 cm focus of restricted diffusion centered in the left diana consisten t with acute to subacute infarct. No additional foci of restricted diffusion are identified. There is no hemorrhage or mass effect. There is age-related involutional change noting advanced confluent jeannine roangiopathic disease. No enhancing mass lesion is identified on the postcontrast images. No extra-a xial fluid collection is seen. The cerebellar tonsils are normal in configuration. Ventricles, sulci, and cisterns: Prominent secondary to involutional change. Pituitary and sella: Unremarkable. Intracranial vasculature: Normal flow voids are maintained at the skull base. Orbits: The bony orbits are grossly intact. Orbital contents are normal in appearance noting bilatera l ocular lens implants. Sinuses and mastoids: Clear. Calvarium: Unremarkable. Cervical cord: Partially visualized cervical spinal cord is normal in morphology and signal intensity . IMPRESSION: 1. There is an acute to subacute lacunar infarct centered in the left diana. 2. No additional foci of acute ischemia are identified. 3. There is no hemorrhage or mass effect. ACT 112: Negative or not required by law. Electronically signed by: Keon Greer M.D. 03/16/2024 7:07 PM
[2024-03-16] MEDS ORDERED: Nursing to Pharmacy Communication SCH (20:30)
[2024-03-16] MEDS: PRAMIPEXOLE DIHYDROCHLO 0.5 MG TAB PO SCH (22:14)
[2024-03-17 06:56] LABS: Basophils # (auto) 0.02 K/uL (0.00-0.20); Basophils % (auto) 0.2 %; Eosinophils # (auto) 0.07 K/uL (0.00-0.50); Eosinophils % (auto) 0.7 %; Hematocrit (blood only) 36.8 % (37.0-47.0); Immature Granulocytes # (auto) 0.04 K/uL (0.01-0.20); Immature Granulocytes % (auto) 0.4 %; Lymphocytes # (auto) 1.48 K/uL (1.20-3.40); Lymphocytes % (auto) 15.6 %; Mean Corpuscular Hemoglobin 29.3 pg (25.0-34.0); Mean Corpuscular Hgb Conc 35.3 g/dL (32.0-36.0); Mean Corpuscular Volume 82.9 fL (80.0-100.0); Mean Platelet Volume 9.5 fL (9.4-12.4); Monocytes % (auto) 7.4 %; Neutrophils % (auto) 75.7 %; Platelet Count 301 K/uL (130-400); RDW Coefficient of Variation 12.7 % (11.5-14.5); RDW Standard Deviation 38.5 fL (36.4-46.3); Red Blood Count 4.44 M/uL (4.20-5.40); White Blood Count 9.51 K/ul (4.8-10.8)
[2024-03-17 07:15] LABS: BUN Creatinine Ratio 18.3 (10-20); Calcium 9.4 mg/dl (8.6-10.3); Chol HDL Ratio 3.4 (0-5); Creatinine Clr Calc Pharmacy 38.2 ml/min; Est GFR (African American) 74.6 ml/min; Est GFR (Non-African American) 64.3 ml/min; Magnesium 2.2 mg/dl (1.7-2.4); Potassium 3.7 mmol/L (3.5-5.1)
[2024-03-17 07:20] LABS: INR 1.1 (0.9-1.1); Prothrombin Time 11.7 Seconds (9.0-12.0)
[2024-03-17 07:33] LABS: Estimated Average Glucose 120 mg/dl; Hemoglobin A1C 5.8 % (4.5-5.6)
[2024-03-17] MEDS: ENOXAPARIN INJ 30 MG/0.3 ML SYR SQ SCH (09:19)
--- NOTE | 2024-03-17 09:34 | Pharmacy Report ---
- Date of Service March 17, 2024 - Pharmacy CVA/TIA Medication Review Medications to Prevent Stroke handout has been added to the patients discharge packet. Antiplatelet(s) * Aspirin 300 mg daily * Plavix 75 mg daily Cholesterol * High intensity statin: atorvastatin 80 mg daily DVT Prophylaxis * Enoxaparin SQ Therapeutic Anticoagulation * No history of Afib/Aflutter noted, paroxysmal SVT noted. Type 2 Diabetes * Patient does not have T2DM
[2024-03-17] MEDS: CLOPIDOGREL BISULFATE 75 MG TAB PO SCH (09:45)
[2024-03-17] MEDS: ATORVASTATIN 40 MG TAB PO SCH (09:45)
[2024-03-17] MEDS: PANTOprazole 40 MG TAB PO SCH (09:45)
[2024-03-17] MEDS: ASPIRIN 81 MG ECTAB PO SCH (09:45)
--- NOTE | 2024-03-17 10:36 | XCELERA ---
[id number] \\[id number]
[2024-03-17] MEDS: ASPIRIN 300 MG SUPP PR SCH (10:38)
[2024-03-17] MEDS: D5W AND 1/2NSS + 20MEQ KCL 20 MEQ/1,000 ML BAG IV SCH (10:38)
[2024-03-17] MEDS ORDERED: PANTOprazole 40 MG in SYRINGE 0 ML IV SCH (11:00)
--- NOTE | 2024-03-17 17:25 | Hospitalist Progress Note ---
Date of Service March 17, 2024 Assessment & Plan (1) Left pontine CVA: Plan: Acute to subacute left pontine CVA -was not a candidate for thrombolysis because she presented too late, no LVO on CTA h/n -brain MRI overnight reviewed - L pontine -deficits of L facial droop and slurred speech, LLE weakness. Likely LUE weakness as well but cannot interpret exam well because of severe chronic L shoulder pathology -continue DAPT with ASA and plavix for 90d then step down to single agent likely ASA -PT/OT/ST - walked 80 feet with walker, ongoing PT/OT recommended, she plans to return to [facility] and have PT/OT there. ST - rec easy to chew with thin liquids -neurology referral for follow up 80% basilar artery stenosis on CTA head/neck -telestroke neurologist discussed with neurosurgeon at [facility], recommended DAPT for 90d and follow up with neurosurgery as outpatient after that -discussed with patient and her daughter. Ultimately they are not interested in procedural interventions because of her advanced age, overall goals of care, and risks TTE unremarkable, no shunt or thrombus. Normal LVEF Lipids - elevated - LDL 163 - continue increased dose of atorvastatin A1c - 5.8 (2) Hypertension: Plan: allow permissive HTN for new CVA (3) Hypokalemia: Plan: replaced and resolved (4) [facility]ilar [facility]: [facility]Continue dual antiplatelet therapy for at least 90 days >Patient can follow up with Neurosurgery after 90 days of DAPT (5) Paroxysmal SVT (supraventricular tachycardia): Plan: -Currently in NSR - reviewed tele. No hx afib. -Continue to monitor on tele (6) Lymphoma: Plan: -Has been in surveillance -continue outpatient oncology follow up (7) Hyperlipidemia: Plan: atorvastatin Plan hope for dc tomorrow to [facility] with PT/OT updated her daughter at bedside 03/17 Admission and Anticipated Discharge Date Admission Date: March 16, 2024 Subjective R facial droop and slurred speech improved. Also has R leg weakness. RUE with severe shoulder problems so unable to assess. Weakness with walking since at least a few days ago Physical Exam 2 Physical Exam: PHYSICAL EXAMINATION Last 24h vital signs reviewed, see documentation in flowsheet General: comfortable appearing, no distress HEENT: Normocephalic, atraumatic, pupils round and equal, sclerae anicteric, no conjunctival injection, moist mucus membranes Lungs: Normal respiratory effort. Clear to auscultation bilaterally. No RRW Heart: Regular rate and rhythm, no murmurs. No JVD Abdomen: Soft, nontender, nondistended. Bowel sounds present. Extremities: Warm, dry, well-perfused. No extremity edema. Neuro: Alert and oriented x 4, R facial droop, slightly slurred speech, tongue midline, eomi, R frame assembler sl weaker than L, can't do PD, RLE 3/5 hip flexor, dorsiflexion and L 4/5, hip flexor and dorsiflexion, 5/5 plantar flexion sharifa Psych: Normal affect and behavior Results & Data Results & Data Vital Signs (Past 12 Hours) Vital Signs Temp Pulse Pulse Pulse Resp BP BP 03/17/24 15:59 36.5 C 72 16 142/85 H 03/17/24 11:29 36.7 C 62 17 147/83 H 03/17/24 08:00 90 03/17/24 07:53 36.5 C 61 16 148/69 H Pulse Ox O2 Del Method 03/17/24 15:59 99 Room Air 03/17/24 11:29 99 Room Air 03/17/24 08:00 03/17/24 07:53 97 Room Air Laboratory Results 03/17/24 06:00 03/17/24 06:00 PG Care Time/CCT Total # of Minutes Spent Total Time Spent with Patient: I personally spent: 50 minutes today on clinical care activities including: reviewing chart notes and vital signs reviewing labs reviewing studies discussion with manager progressive care examining and counseling the patient counseling the patient's family writing orders documentation Coding Level of Care Code 36505 SUB INP/OBS CARE 3/50MIN Diagnoses Left pontine CVA I63.9 Hypertension I10 Hypokalemia E87.6 Basilar artery stenosis I65.1 Paroxysmal SVT (supraventricular tachycardia) I47.1 Lymphoma C85.90 Hyperlipidemia E78.5
[2024-03-18 06:37] LABS: Basophils # (auto) 0.03 K/uL (0.00-0.20); Basophils % (auto) 0.3 %; Eosinophils # (auto) 0.34 K/uL (0.00-0.50); Eosinophils % (auto) 3.8 %; Hematocrit (blood only) 32.3 % (37.0-47.0); Hemoglobin 11.3 g/dl (12.0-16.0); Immature Granulocytes # (auto) 0.05 K/uL (0.01-0.20); Immature Granulocytes % (auto) 0.6 %; Lymphocytes # (auto) 0.93 K/uL (1.20-3.40); Lymphocytes % (auto) 10.3 %; Mean Corpuscular Hemoglobin 28.8 pg (25.0-34.0); Mean Corpuscular Volume 82.2 fL (80.0-100.0); Mean Platelet Volume 9.3 fL (9.4-12.4); Monocytes # (auto) 0.69 K/uL (0.11-0.59); Monocytes % (auto) 7.6 %; Neutrophils # (auto) 7.01 K/uL (1.40-6.50); Neutrophils % (auto) 77.4 %; Platelet Count 254 K/uL (130-400); RDW Coefficient of Variation 12.7 % (11.5-14.5); RDW Standard Deviation 38.6 fL (36.4-46.3); Red Blood Count 3.93 M/uL (4.20-5.40); White Blood Count 9.05 K/ul (4.8-10.8)
[2024-03-18 06:54] LABS: BUN Creatinine Ratio 15.9 (10-20); Calcium 8.8 mg/dl (8.6-10.3); Creatinine Clr Calc Pharmacy 41.3 ml/min; Est GFR (African American) 74.6 ml/min; Est GFR (Non-African American) 64.3 ml/min; Magnesium 2.2 mg/dl (1.7-2.4); Potassium 4.2 mmol/L (3.5-5.1)
--- NOTE | 2024-03-18 19:23 | Discharge Summary ---
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 ED staff reports that the patient developed acute onset of slurred speech, right facial droop, and right sided weakness at approximately 1300 this afternoon. On arrival to the ED she was noted to be hypertensive at 145/75 but was otherwise stable. Labs were significant for a potassium of 3.4. CT of the head/brain wo con and CTA head were read as negative for acute findings. CTA of the neck was read as "1. No significant stenosis, occlusion, or dissection identified within the carotid or vertebral arteries. 2. Focal stenosis of approximately 80% at the proximal basilar artery.". The ED staff spoke with Humaira Telestroke who did not recommend TNK administration and recommended admission for ongoing workup of possible CVA. Prior to admission the patient was given 300 mg rectal aspirin and 2L NSS. At the time of the exam the patient was lying in bed in no acute distress with her son bedside, history was obtained from both. The patient received Kenalog injections in her left wrist and right shoulder on 03/12/24 with Orthopedics. The patient states that over the week she did not feel "right". States she had brain fog, felt as though she had weakness in the BL LE's, and LUE weakness. When asked, the patient clearly states that symptoms initially began over the weekend. However, they significantly progressed this afternoon around 1300. She currently denies headache, changes in vision, hearing, taste, smell, difficulty swallowing/choking, new paresthesias, chest pain, cough, SOB, abd pain, nausea, vomiting, diarrhea, dysuria, hematuria, melena, LE swelling, and recent falls/trauma. She feels as though she is still slurring her words, her son agrees that this and the right sided facial weakness are new for her. She no longer feels that she is having weakness in the BL LE's and is unsure if she is having weakness in her upper extremities at this time. We discussed code status, she is a full code and her son is her POA. Principal Diagnosis Acute or more likely subacute ischemic stroke Discharge Exam PHYSICAL EXAMINATION Last 24h vital signs reviewed, see documentation in flowsheet General: comfortable appearing, no distress, walking with OT in room HEENT: moist mucus membranes Lungs: Normal respiratory effort. Heart: NSR on tele review Abdomen: nondistended Extremities: Warm, dry, well-perfused. No extremity edema. Neuro: Alert and oriented x place and basic situation, some forgetfulness/confusion present, R facial droop, slightly slurred speech improved, R nursing executive sl weaker than L, RLE weakness especially dorsiflexion slow steady gait with walker, needs verbal cueing for safety Psych: Normal affect and behavior Discharge Data Allergies Allergy/AdvReac Type Severity Reaction Status Date / Time No Known Allergies Allergy Verified 03/16/24 14:52 Consultations 03/16/24 15:27 ED Decision to Admit Stat Ordered Studies 03/16/24 13:56 CT angio head w con Stat CT angio neck with con Stat CT head/brain wo con Stat 03/16/24 15:51 MRI Brain [MR brain wo/w con] Urgent Chest X-Ray 03/16/24 13:56 XR chest 1V portable CLINICAL HISTORY: neuro deficit, acute stroke suspected COMPARISON STUDY: Chest CT February 26, 2024. FINDINGS: Lung volumes are diminished. Lungs are clear. There is no pneumothorax or pleural effusion. Cardiac size is normal. Mediastinal contours are normal. Interstitial prominence is noted. IMPRESSION: Interstitial prominence. This could be due to a hypoventilatory study or represent mild pulmonary edema. ACT 112: Negative or not required by law. Electronically signed by: Ricardo Corley M.D. 03/16/2024 2:[address] 03/16/24 13:56 CT OF THE HEAD WITHOUT CONTRAST CLINICAL HISTORY: aphasia, Right sided weakness COMPARISON STUDY: MRI of the brain December 23, 2019. CT DOSE: 1080.06 mGy.cm TECHNIQUE: Helical axial images of the head were obtained without IV contrast. Automated exposure control was utilized for the study. A dose lowering technique was utilized adhering to the principles of ALARA. FINDINGS: No acute intracranial hemorrhage, midline shift or mass effect is present. The ventricular system is stable. Mild ventricular dilatation is likely due to central atrophy. White matter hypodensity suggests small vessel disease. The basal cisterns are patent. No extra-axial collections are present. There are no findings to suggest acute dural sinus thrombosis or acute territorial infarct . No significant calvarial abnormalities are present. Visualized portions of the sinuses and mastoid air cells are clear. IMPRESSION: No acute intracranial findings. ACT 112: Negative or not required by law. Electronically signed by: Ricardo Corley M.D. 03/16/2024 2:13 PM Head CTA 03/16/24 13:56 CT ANGIOGRAM OF THE BRAIN CLINICAL HISTORY: Aphasia. Right-sided weakness. COMPARISON STUDY: Unenhanced CT of the brain performed concurrently on 03/16/2024. TECHNIQUE: Unenhanced axial CT scan of the brain is performed. Subsequently, following the IV administration of 119 cc of Optiray 320, CT angiogram of the brain was performed from the skull base to the vertex. Images are reviewed in the axial, sagittal, and coronal planes. 3-D MIPS images are created and assessed. IV contrast was administered without complication. A dose lowering technique was utilized adhering to the principles of ALARA. FINDINGS: Brain parenchyma: There is age-related involutional change noting moderate to advanced confluent subcortical and periventricular microangiopathic disease. There is no evidence of hemorrhage, mass effect, or acute territorial ischemia noting angiographic phase technique. There is no evidence of enhancing mass lesion on the angiogram phase images. No extra-axial fluid collection is seen. Quijano-white matter differentiation is preserved. Ventricles, sulci, and cisterns: Prominent secondary to positional change. CT angiogram of the brain: There is atherosclerotic calcification of the cavernous carotid arteries. The internal carotid arteries are widely patent, as are the anterior and middle cerebral arteries. The vertebrobasilar system and posterior cerebral arteries are widely patent. There is origin of the right posterior cerebral artery. The left vertebral artery is dominant. There is no aneurysm, high-grade stenosis, or focal vessel cutoff identified throughout the intracranial circulation. Dural sinuses: Clear as visualized. Orbits: The bony orbits are intact. The orbital contents are normal as visualized noting bilateral ocular lens implants. Sinuses and mastoids: The visualized paranasal sinuses are clear. The mastoid air cells are well pneumatized. Calvarium: Unremarkable. IMPRESSION: 1. There is no evidence of hemorrhage, mass effect, or acute territorial ischemia noting angiographic phase technique. 2. Unremarkable CT angiogram of the brain. ACT 112: Negative or not required by law. Electronically signed by: Keon Greer M.D. 03/16/2024 2:18 PM Neck CTA 03/16/24 13:56 NECK CTA HISTORY: aphasia, Right sided weakness TECHNIQUE: Multiaxial CT images of the neck were performed following the intravenous administration of contrast to evaluate the major cervical vessels. 3D/MIP images were also obtained. Sagittal and coronal reformats were reviewed. All measurements were calculated based on NASCET criteria. A dose lowering te chnique was utilized adhering to the principles of ALARA. COMPARISON STUDY: None. FINDINGS: The aortic arch and proximal great vessels are widely patent. There is no significant stenosis, occlusion, or dissection identified within the bilateral common carotid, internal carotid, or vertebral arteries. There is a focal area of high-grade stenosis within the proximal basilar artery just beyond the confluence of the vertebral arteries. This is best seen on image 287. This demonstrates approximately 80% focal stenosis. IMPRESSION: 1. No significant stenosis, occlusion, or dissection identified within the carotid or vertebral arteries. 2. Focal stenosis of approximately 80% at the proximal basilar artery. ACT 112: Negative or not required by law. Electronically signed by: Carlos Webster M.D. 03/16/2024 2:25 PM Brain MRI 03/16/24 15:51 MRI OF THE BRAIN COMBO CLINICAL HISTORY: Strokelike symptoms. COMPARISON STUDY: CT of the brain dated 03/16/2024. MRI of the brain dated 12/23/2019. TECHNIQUE: MRI of the brain was performed utilizing various T1 and T2-weighted sequences in the axial, sagittal, and coronal planes. Contrast-enhanced s equences were acquired following the administration of 6.2 cc of Gadavist. The examination is significantly degraded by motion artifact. FINDINGS: Brain parenchyma: There is a 1.5 cm focus of restricted diffusion centered in the left diana consistent with acute to subacute infarct. No additional foci of restricted diffusion are identified. There is no hemorrhage or mass effect. There is age-related involutional change noting advanced confluent microangiopathic disease. No enhancing mass lesion is identified on the postcontrast images. No extra-axial fluid collection is seen. The cerebellar tonsils are normal in configuration. Ventricles, sulci, and cisterns: Prominent secondary to involutional change. Pituitary and sella: Unremarkable. Intracranial vasculature: Normal flow voids are maintained at the skull base. Orbits: The bony orbits are grossly intact. Orbital contents are normal in appearance noting bilateral ocular lens implants. Sinuses and mastoids: Clear. Calvarium: Unremarkable. Cervical cord: Partially visualized cervical spinal cord is normal in morphology and signal intensity. IMPRESSION: 1. There is an acute to subacute lacunar infarct centered in the left diana. 2. No additional foci of acute ischemia are identified. 3. There is no hemorrhage or mass effect. ACT 112: Negative or not required by law. Electronically signed by: Keon Greer M.D. 03/16/2024 7:07 PM Hospital Course (1) Left pontine CVA: Acute to subacute left pontine CVA - may have occurred a few days prior to admission -teleneurology stroke consult in ED -was not a candidate for thrombolysis because she presented too late, no LVO on CTA h/n -brain MRI - L pontine stroke corresponds with deficits -deficits of L facial droop and slurred speech, LLE weakness. Likely LUE weakness as well but cannot interpret exam well because of severe chronic L shoulder pathology -TTE unremarkable, no shunt or thrombus. Normal LVEF, no afib on tele -continue DAPT with ASA and plavix for 90d then step down to single agent likely ASA -increased atorvastatin TC 257, LDL 163, HDL 76 -PT/OT/ST - walked 90 feet with walker today which is near her baseline per Iman Peralta, PT/OT recommended rehab however patient and her daughter declined this feeling she will do much better in home setting at her [facility], will continue PT and OT there, ST - rec easy to chew with thin liquids -made outpatient neurology referral for follow up of stroke 80% basilar artery stenosis on CTA head/neck -telestroke neurologist discussed with neurosurgeon at [facility], recommended DAPT for 90d and follow up with neurosurgery as outpatient after that -discussed with patient and her daughter. Ultimately they are not interested in procedural interventions because of her advanced age, overall goals of care, and risks. If this changes, please make referral to [facility] neurosurgery following her course of DAPT (2) Hypertension: Hx of HTN but currently on no meds. BP normal. (3) Hypokalemia: replaced and resolved (4) Basilar artery stenosis: see above (5) Paroxysmal SVT (supraventricular tachycardia): Hx of this -remained in NSR - reviewed tele. No hx afib. (6) Lymphoma: -Has been in surveillance -continue outpatient oncology follow up (7) Hyperlipidemia: atorvastatin Total Time Total Time Spent Total Time Spent (In Minutes): I personally spent: 40 minutes today on clinical care activities including: reviewing chart notes and vital signs reviewing labs discussion with healthcare management consultant, bedside RN examining and counseling the patient writing orders, Rx, discharge instructions, arranging follow up referral documentation Discharge Plan Discharge Items Patient Disposition: Personal Long Term Reason For Visit: STROKE ALERT Discharge Diagnosis: Acute to subacute left pontine stroke Activity: As commented below Weightbearing: Full weightbearing Non-emergency contact: Primary Care Provider Call non-emergency contact if: you have any medication questions and your symptoms worsen Follow-up/Referrals: Iman stauffer,[place] [Primary Care Provider] - Diet: Heart Healthy Diet Texture: Easy to Chew Maria Esther Attending Provider Instructions: You were treated for acute stroke This caused R facial droop, R arm and R leg weakness Ongoing physical and occupational therapy recommended - evaluate and treat May be ambulatory with walker and stand-by assistance We made referral to [facility] neurology for follow up of stroke 90 days of DAPT with aspirin + clopidogrel was recommended by stroke neurologist -you should STOP taking meloxicam and other NSAIDS (ibuprofen, naproxen) while on both aspirin and plavix - risk of bleeding stomach ulcer is too high -acetaminophen (tylenol) is safe to take as directed for arthritis or other pain Your cholesterol is elevated so treatment with "statin" is indicated to prevent future stroke and worsening of basilar artery stenosis. I started with low dose of atorvastatin because of your age, but your doctor can increase the dose if you are tolerating it well Referral to neurosurgery at [facility] for basilar artery stenosis after completing 90 days of DAPT, if desired by Liset and her family - at this point they are not interested in procedural interventions. Addtl Permit Coordinator Provider Instructions: Risk Factors for Stroke: You can reduce your chances of stroke by working with your medical provider to adopt a healthy lifestyle. Some specific ways to lower your chance of stroke are: * If you are a smoker, now is the time to stop smoking cigarettes * If you are diabetic, improve the control of your blood sugars * Avoid excessive amounts of alcohol * Control high blood pressure * Lose weight if you are overweight * Be sure to lead an active lifestyle * Eat a healthy diet low in salt, cholesterol and fat You should know about other risk factors for stroke that you are unable to control. These include: * Age 55 years or older * Male gender * Certain racial groups: , or / * Family History of Stroke, Mini stroke or Heart Attack * Sickle Cell Disease Follow Up: It is important for you to keep your follow up appointments with your medical provider. Who to Call and When: Medical Emergencies: Call 911 immediately if you experience any of the following warning signs and symptoms of Stroke: * Sudden numbness or weakness of the face, arm or leg, especially on one side of the body * Sudden confusion, trouble speaking or understanding * Sudden trouble seeing in one or both eyes * Sudden trouble walking, dizziness, loss of balance or coordination * Sudden severe headache with no cause Do not delay calling 911 if you experience any warning signs or symptoms of a stroke. Delay in seeking medical attention may affect what treatments can be given to you. . Pending Studies at Discharge: No Stand-Alone Forms: My [facility] Fanzter, Smoking Cessation, Medications to Prevent Stroke Skilled Items Patient informed of condition?: Yes DNR: No Discharge Level of Care: Other Communicable Disease: No Discharge Prognosis: Stable Lines: None Urinary Catheter: No Medications and DC Order Prescriptions: New aspirin 81 mg Tablet,Delayed Release (Dr/Ec) 81 mg PO QAM Qty: 30 0RF atorvastatin 40 mg tablet 40 mg PO DAILY Qty: 30 0RF clopidogrel 75 mg Tablet 75 mg PO QAM Qty: 30 0RF Continued pramipexole 0.25 mg tablet 0.5 mg PO BID Rx Instructions: TAKES AT 1400 & 2000 furosemide [Lasix] 40 mg Tablet 40 mg PO QAM furosemide [Lasix] 40 mg Tablet 20 mg PO .DAILY @ 1400 ondansetron HCl 4 mg Tablet 4 mg PO Q8H PRN (Reason: Nausea) pantoprazole [Protonix] 20 mg Tablet,Delayed Release (Dr/Ec) 20 mg PO QAM diphenhydramine HCl [Benadryl Allergy] 25 mg Tablet 50 mg PO Q8H PRN (Reason: Allergic Reaction) albuterol sulfate [Ventolin HFA] 90 mcg/actuation Hfa Aerosol Inhaler 2 puff INHALATION Q4H PRN (Reason: Shortness Of Breath Or Wheezing) psyllium seed (sugar) Powder 0 ea PO QAM Rx Instructions: MIX 25 GRAM IN 8 OZ. FLUID DAILY Discontinued meloxicam 15 mg tablet 15 mg PO QAM Discharge Orders: Discharge Order (Routine); Ordered 03/18/24 Ordered By: Laurel Ramos Admission Data Admit Date/Time: 03/16/24 15:30 Attending Provider: Laurel Ramos Admit Provider: Uriel Chase Primary Care Provider: Iman staufferLeb[place] Other Providers: Uriel Chase Other Interventions: Discharge Summary Assessment (RN) Last Done: 03/18/24 14:33 Coding Level of Care Code 45872 INP/OBS DISCH >30 MIN Diagnoses Left pontine CVA I63.9 Hypertension I10 Hypokalemia E87.6 Basilar artery stenosis I65.1 Paroxysmal SVT (supraventricular tachycardia) I47.1 Lymphoma C85.90 Hyperlipidemia E78.5
== END 2024-03-18 15:36 | disposition home or self-care (01) | DRG 65 ==
LOC: ED 13:58 → EDINP 15:30 → SUATTDRO 15:30 → EDINP 16:35 → 2E 18:57